=== PATIENT | male | born 1985 | race Caucasian/White ===

== ENCOUNTER 2016-12-27 15:14 | Emergency (ER) | payer MEDICARE ==
[~2016-12-27] VITALS: Ht 180.3 cm; Wt 80.0 kg
[2016-12-27 15:22] VITALS: BP 122/74; PULSE 97; RESP 18; TEMP 97.6; O2SAT 99
--- NOTE | 2016-12-27 15:53 | PD ---
HPI Chief Complaint: Skin Problem Time Seen by Provider: 15:53 Travel History International Travel<30 days: No Contact w/Intl Traveler<30days: No Traveled to known affect area: No History of Present Illness HPI 31-year-old male presents to the emergency department with complaint of multiple "insect bites" for the past week to 2 weeks to BUE and BLE, with development of severe low back pain and bilateral lower extremity edema last night. Patient arrived via EMS. Denies fever, vomiting. Denies IV drug use or cancer. Denies encopresis, incontinence, saddle anesthesias. Denies paresthesias, loss of sensation, decreased range of motion, decreased strength to bilateral lower extremities. Reports being up-to-date on his tetanus vaccination. Has no other medical complaints. No known allergies. Has not taken any medications or tried any treatments or alleviating symptoms. PFSH Past Medical History Respiratory: Yes (SLIGHT ASTHMA) Social History Tobacco Use: No Allergies-Medications (Allergen,Severity, Reaction): Coded Allergies: No Known Allergies (Unverified , 12/27/16) Reported Meds & Prescriptions Reported Meds & Active Scripts Active Bactrim DS (Sulfamethoxazole-Trimethoprim) 800-160 Mg Tab 1 Tab PO BID Tramadol (Tramadol HCl) 50 Mg Tab 50 Mg PO Q6H PRN Review of Systems Except as stated in HPI: all other systems reviewed are Neg Physical Exam Narrative GENERAL: Well-nourished, well-developed male patient, in no acute distress; afebrile, nontoxic-appearing SKIN: Warm and dry. Multiple scalp lesions noted to bilateral lower and bilateral upper extremities; HEAD: Atraumatic. Normocephalic. EYES: Pupils equal and round. No scleral icterus. No injection or drainage. ENT: Mucosa pink and moist. Airway patent. NECK: Trachea midline. CARDIOVASCULAR: Regular rate and rhythm. No murmur appreciated. Bilateral lower legs and feet with nonpitting edema. RESPIRATORY: No accessory muscle use. Breath sounds clear and equal bilaterally. No retractions or tachypnea. GASTROINTESTINAL: Abdomen soft, non-tender, nondistended. Positive bowel sounds. No hepato-splenomegaly, or palpable masses. No guarding. MUSCULOSKELETAL: Bilateral lower extremities supple and non-tense with 2+ pedal pulses and sensory intact; with full range of motion and 5/5 strength. Active dorsiflexion and extension of bilateral feet. Bilateral straight leg raise is negative for low back pain. Ambulatory in room with normal gait. Sitting up in bed at 90. No obvious deformities. No clubbing. No cyanosis. No edema. BACK: Midline point tenderness on palpation of the lumbar spine; patient has severe tenderness midline causing entire body to have goose bumps on exam. No obvious deformities. NEUROLOGICAL: Awake and alert. Oriented 3. No obvious cranial nerve deficits. Motor grossly within normal limits. Normal speech. Moves all extremities. 5/5 strength to all extremities. Sensory intact. PSYCHIATRIC: Appropriate mood and affect; insight and judgment normal. Data Data Last Documented VS Vital Signs Date Time Temp Pulse Resp B/P Pulse Ox O2 Delivery O2 Flow Rate FiO2 12/27/16 21:00 80 14 130/62 98 Room Air 12/27/16 16:33 2 12/27/16 15:22 97.6 Orders Complete Blood Count With Diff (12/27/16 16:07) Comprehensive Metabolic Panel (12/27/16 16:07) Prothrombin Time / Inr (Pt) (12/27/16 16:07) Act Partial Throm Time (Ptt) (12/27/16 16:07) Lactic Acid Sepsis Protocol (12/27/16 16:07) Urinalysis - C+S If Indicated (12/27/16 16:07) Blood Culture (12/27/16 16:07) Ecg Monitoring (12/27/16 16:07) Iv Access Insert/Monitor (12/27/16 16:07) Oximetry (12/27/16 16:07) Westergren Sedimentation Rate (12/27/16 16:07) C-Reactive Protein (Crp) (12/27/16 16:07) Wound Culture And Gram Stain (12/27/16 16:07) Mri L Spine W&W/O Contrast (12/27/16 ) Morphine Inj (Morphine Inj) (12/27/16 16:15) Clindamycin Inj (Cleocin Inj) (12/27/16 16:30) Sodium Chlor 0.9% 1000 Ml Inj (Ns 1000 M (12/27/16 16:30) Gadodiamide Pf Inj (Omniscan Pf Inj) (12/27/16 16:57) Ct Abd/Pel W/O Iv Contrast (12/27/16 ) Hydromorphone Pf Inj (Dilaudid Pf Inj) (12/27/16 22:00) Labs Laboratory Tests Test 12/27/16 12/27/16 12/27/16 16:23 19:20 20:30 White Blood Count 6.6 TH/MM3 Red Blood Count 4.84 MIL/MM3 Hemoglobin 14.2 GM/DL Hematocrit 40.9 % Mean Corpuscular Volume 84.6 FL Mean Corpuscular Hemoglobin 29.3 PG Mean Corpuscular Hemoglobin 34.7 % Concent Red Cell Distribution Width 13.2 % Platelet Count 204 TH/MM3 Mean Platelet Volume 8.1 FL Neutrophils (%) (Auto) 70.6 % Lymphocytes (%) (Auto) 20.2 % Monocytes (%) (Auto) 8.9 % Eosinophils (%) (Auto) 0.1 % Basophils (%) (Auto) 0.2 % Neutrophils # (Auto) 4.6 TH/MM3 Lymphocytes # (Auto) 1.3 TH/MM3 Monocytes # (Auto) 0.6 TH/MM3 Eosinophils # (Auto) 0.0 TH/MM3 Basophils # (Auto) 0.0 TH/MM3 CBC Comment DIFF FINAL Differential Comment Erythrocyte Sedimentation Rate 10 mm/hr Prothrombin Time 12.7 SEC Prothromb Time International 1.1 RATIO Ratio Activated Partial 32.8 SEC Thromboplast Time Lactic Acid Level 1.3 mmol/L Sodium Level 138 MEQ/L Potassium Level 3.1 MEQ/L Chloride Level 102 MEQ/L Carbon Dioxide Level 28.5 MEQ/L Anion Gap 8 MEQ/L Blood Urea Nitrogen 5 MG/DL Creatinine 0.68 MG/DL Estimat Glomerular Filtration 138 ML/MIN Rate Random Glucose 106 MG/DL Calcium Level 7.6 MG/DL Total Bilirubin 0.6 MG/DL Aspartate Amino Transf 167 U/L (AST/SGOT) Alanine Aminotransferase 221 U/L (ALT/SGPT) Alkaline Phosphatase 12 U/L C-Reactive Protein 4.90 MG/DL Total Protein 6.3 GM/DL Albumin 2.5 GM/DL Urine Color YELLOW Urine Turbidity HAZY Urine pH 6.0 Urine Specific [place] 1.017 Urine Protein TRACE mg/dL Urine Glucose (UA) NEG mg/dL Urine Ketones NEG mg/dL Urine Occult Blood MOD Urine Nitrite NEG Urine Bilirubin NEG Urine Urobilinogen 4.0 MG/DL Urine Leukocyte Esterase NEG Urine RBC /hpf Urine WBC 1 /hpf Microscopic Urinalysis Comment CATH-CULT NOT IND MDM Medical Decision Making Medical Screen Exam Complete: Yes Emergency Medical Condition: Yes Medical Record Reviewed: Yes Differential Diagnosis Multiple abscesses of multiple sites, Spinal abscess, sepsis, low back pain Narrative Course 31-year-old male with multiple abscesses multiple sites with onset of severe low back pain and bilateral lower leg and foot edema last night. Denies new or recent injury. Patient denies IV drug use or cancer. Denies encopresis, incontinence, saddle anesthesias. Patient has severe midline tenderness on palpation of the lumbar spine. I discussed the patient with Dr. Campos, my attending physician, and she recommended septic workup, MRI of the spine and to start clindamycin IV. She ordered morphine for pain. 1730: Lactic acid 1.3. CBC unremarkable. ESR 10. 1845: MRI lumbar spine concludes: Last 24 hours Impressions Lumbar Spine MRI 12/27/16 0000 Signed Impressions: Service Date/Time: Thursday, December 27, 2016 16:35 - CONCLUSION: 1. Surgical hardware at the L1-L2 level. There is postoperative change seen at the T12 and L1 spinous processes regions. 2. Mild central disc protrusion at the L3-L4 level. There is moderate stenosis at this level likely secondary to superimposed short pedicles. 3. Mild central disc protrusion at the L5 disc S1 level without significant stenosis. 4. Facet hypertrophy throughout. Magdiel Singh MD 1899: Patient reported off to Dr. Roger at this time. See her note for final patient disposition. Scripts Sulfamethoxazole-Trimethoprim (Bactrim DS)800-160 Mg Tab1 Tab PO BID #14 TAB Ref 0 Prov:Karley Roger MD 12/27/16 Tramadol 50 Mg Tab50 Mg PO Q6H PRN (PAIN) #10 TAB Ref 0 Prov:Karley Roger MD 12/27/16 Shannon Mukherjee Dec 27, 2016 15:53
[2016-12-27] MEDS ORDERED: CLINDAMYCIN INJ 900 MG in SODIUM CHLORIDE 0.9% INJ 100 ML IV ONE (16:30)
[2016-12-27] MEDS ORDERED: SODIUM CHLOR 0.9% 1000 ML INJ 1,000 ML IV ONE (16:30)
[2016-12-27 16:33] VITALS: O2SAT 97
[2016-12-27] MEDS: MORPHINE SULFATE 4 MG/ML INJ IV PUSH PRN ×2 (16:35→17:56)
[2016-12-27 16:53] LABS: AUTOMATED NEUTROPHIL # 4.6 TH/MM3 (1.8-7.7); BASOPHIL % 0.2 % (0.0-2.0); EOSINOPHIL % 0.1 % (0.0-4.0); HEMATOCRIT 40.9 % (39.0-51.0); HEMO FLAGS DIFF FINAL; LYMPH % 20.2 % (9.0-44.0); LYMPHOCYTE # 1.3 TH/MM3 (1.0-4.8); MEAN CELL VOLUME 84.6 FL (80.0-100.0); MEAN CORPUSCULAR HEMOGLOBIN 29.3 PG (27.0-34.0); MEAN CORPUSCULAR HGB CONC 34.7 % (32.0-36.0); MONO % 8.9 % (0.0-8.0); NEUT % 70.6 % (16.0-70.0); PLATELET COUNT 204 TH/MM3 (150-450); RED BLOOD COUNT 4.84 MIL/MM3 (4.50-5.90); RED CELL DISTRIBUTION WIDTH 13.2 % (11.6-17.2); WHITE BLOOD COUNT 6.6 TH/MM3 (4.0-11.0)
[2016-12-27] MEDS ORDERED: GADODIAMIDE PF 287 MG/ML 20 ML VIAL (for RAD MRI) IV ONE (16:57)
[2016-12-27 17:03] LABS: APTT (PATIENT) 32.8 SEC (24.3-30.1); INTERNATIONAL NORMALIZED RATIO 1.1 RATIO; PROTHROMBIN TIME - PATIENT 12.7 SEC (9.8-11.6)
[2016-12-27 17:50] VITALS: BP 143/78; PULSE 85; RESP 18; O2SAT 97
[2016-12-27 18:04] LABS: ALT (GPT) 221 U/L (12-78)
[2016-12-27 18:07] LABS: ALKALINE PHOSPHATASE 12 U/L (45-117); TOTAL BILIRUBIN ADULT 0.6 MG/DL (0.2-1.0)
--- NOTE | 2016-12-27 18:27 | RADRPT ---
EXAM DATE/TIME: 12/27/2016 16:35 [facility] COMPARISON: No previous studies available for comparison. INDICATIONS : Pain. CONTRAST: 16 cc Omniscan (gadodiamide) IV MEDICAL HISTORY : None. SURGICAL HISTORY : Hansen rods. ENCOUNTER: Initial ACUITY: 1 week PAIN SCORE: 5/10 LOCATION: Paraspinal TECHNIQUE: Multiplanar multisequence MRI of the lumbar spine was performed with and without contrast. FINDINGS: The most caudal appearing lumbar vertebra is numbered as L5. VERTEBRAE: Transpedicular screws are seen through the L1 and L2 levels. There is susceptibility artifact associa zoya with the hardware. There is low signal seen around the T12 and L1 spinous processes which is like ly postsurgical. The lumbar vertebral bodies appear normal in height and normally aligned. CONUS: Normal level and configuration. POST CONTRAST: No abnormal areas of contrast enhancement are seen. T12-L1: The thecal sac has a normal diameter. No evidence of disc bulge or protrusion. The neural foramina are patent bilaterally. L1-L2: The thecal sac has a normal diameter. No evidence of disc bulge or protrusion. The neural foramina are patent bilaterally. L2-L3: The thecal sac has a normal diameter. No evidence of disc bulge or protrusion. The neural foramina are patent bilaterally. There is mild facet hypertrophy. L3-L4: The disc demonstrates decreased signal. There is a mild central disc protrusion causing a mild impres dianne on the thecal sac. Overall, there is moderate narrowing of the thecal sac which may be secondary to accompanying short pedicles. The neural foramina are patent bilaterally. There is mild facet hyp ertrophy. L4-L5: The thecal sac has a normal diameter. No evidence of disc bulge or protrusion. The neural foramina are patent bilaterally. There is moderate facet hypertrophy. L5-S1: Disc demonstrates decreased signal. There is a mild central disc protrusion best seen on the sagittal images. Significant stenosis is not seen. The thecal sac has a normal diameter. The disc protrusion does abut the S1 nerve roots while there or in the lateral recess regions. The neural foramina are p atent bilaterally. There is moderate facet hypertrophy. CONCLUSION: 1. Surgical hardware at the L1-L2 level. There is postoperative change seen at the T12 and L1 spinous processes regions. 2. Mild central disc protrusion at the L3-L4 level. There is moderate stenosis at this level likely s econdary to superimposed short pedicles. 3. Mild central disc protrusion at the L5 disc S1 level without significant stenosis. 4. Facet hypertrophy throughout. Magdiel Singh MD on December 27, 2016 at 18:16 Board Certified Radiologist. This report was verified electronically.
[2016-12-27 20:01] LABS: ANION GAP 8 MEQ/L (5-15); AST (GOT) 167 U/L (15-37); BICARBONATE 28.5 MEQ/L (21.0-32.0); BLOOD UREA NITROGEN 5 MG/DL (7-18); CHLORIDE 102 MEQ/L (98-107); GLOMERULAR FILTRATION RATE 138 ML/MIN (>89); POTASSIUM 3.1 MEQ/L (3.5-5.1); SODIUM (NA) 138 MEQ/L (136-145)
[2016-12-27 20:45] LABS: BLOOD, URINE MOD (NEG); COMMENT (UR) CATH-CULT NOT IND; CULTURE IF INDICATED CATH CULTURE NOT IND; GLUCOSE,URINE NEG (NEG); KETONE, URINE NEG (NEG); NITRITE,URINE NEG (NEG); URINE COLOR YELLOW (YELLW/STRAW)
[2016-12-27 21:00] VITALS: BP 130/62; PULSE 80; RESP 14; O2SAT 98
[2016-12-27] MEDS ORDERED: HYDROmorphone HCL PF 1 MG/ML VIAL IV PUSH ONE (22:00)
--- NOTE | 2016-12-27 22:30 | RADRPT ---
EXAM DATE/TIME: 12/27/2016 22:06 [facility] COMPARISON: No previous studies available for comparison. INDICATIONS : Back pain; rule out renal calculi. ORAL CONTRAST: No oral contrast ingested. RADIATION DOSE: 8.34 CTDIvol (mGy) MEDICAL HISTORY : None SURGICAL HISTORY : None. ENCOUNTER: Initial ACUITY: 1 week PAIN SCALE: 6/10 LOCATION: TECHNIQUE: Volumetric scanning of the abdomen and pelvis was performed. Using automated exposure control and ad justment of the mA and/or kV according to patient size, radiation dose was kept as low as reasonably achievable to obtain optimal diagnostic quality images. DICOM format image data is available electro nically for review and comparison. FINDINGS: Hepatosplenomegaly is noted. Evaluation of the solid organs of the abdomen is limited by the lack of intravenous contrast. No acute obstructive uropathy is noted. The urinary bladder is unremarkable and is filled with contrast. Uncomplicated colonic diverticulosis is noted. No acute diverticulitis is noted. Degenerative changes are noted within the lumbar spine. CONCLUSION: 1. No acute obstructive uropathy. 2. Mild hepatosplenomegaly. 3. Uncomplicated colonic diverticulosis. 3. Mild degenerative changes within the lumbar spine. Fco Vann MD on December 27, 2016 at 22:22 Board Certified Radiologist. This report was verified electronically.
[2016-12-27] MEDS ORDERED: BACT800T5 PO (22:40)
[2016-12-27] MEDS ORDERED: TRAM50TA PO (22:40)
--- NOTE | 2016-12-27 22:40 | PD ---
Data Data Last Documented VS Vital Signs Date Time Temp Pulse Resp B/P Pulse Ox O2 Delivery O2 Flow Rate FiO2 12/27/16 21:00 80 14 130/62 98 Room Air 12/27/16 16:33 2 12/27/16 15:22 97.6 Orders Complete Blood Count With Diff (12/27/16 16:07) Comprehensive Metabolic Panel (12/27/16 16:07) Prothrombin Time / Inr (Pt) (12/27/16 16:07) Act Partial Throm Time (Ptt) (12/27/16 16:07) Lactic Acid Sepsis Protocol (12/27/16 16:07) Urinalysis - C+S If Indicated (12/27/16 16:07) Blood Culture (12/27/16 16:07) Ecg Monitoring (12/27/16 16:07) Iv Access Insert/Monitor (12/27/16 16:07) Oximetry (12/27/16 16:07) Westergren Sedimentation Rate (12/27/16 16:07) C-Reactive Protein (Crp) (12/27/16 16:07) Wound Culture And Gram Stain (12/27/16 16:07) Mri L Spine W&W/O Contrast (12/27/16 ) Morphine Inj (Morphine Inj) (12/27/16 16:15) Clindamycin Inj (Cleocin Inj) (12/27/16 16:30) Sodium Chlor 0.9% 1000 Ml Inj (Ns 1000 M (12/27/16 16:30) Gadodiamide Pf Inj (Omniscan Pf Inj) (12/27/16 16:57) Ct Abd/Pel W/O Iv Contrast (12/27/16 ) Hydromorphone Pf Inj (Dilaudid Pf Inj) (12/27/16 22:00) Labs Laboratory Tests Test 12/27/16 12/27/16 12/27/16 16:23 19:20 20:30 White Blood Count 6.6 TH/MM3 Red Blood Count 4.84 MIL/MM3 Hemoglobin 14.2 GM/DL Hematocrit 40.9 % Mean Corpuscular Volume 84.6 FL Mean Corpuscular Hemoglobin 29.3 PG Mean Corpuscular Hemoglobin 34.7 % Concent Red Cell Distribution Width 13.2 % Platelet Count 204 TH/MM3 Mean Platelet Volume 8.1 FL Neutrophils (%) (Auto) 70.6 % Lymphocytes (%) (Auto) 20.2 % Monocytes (%) (Auto) 8.9 % Eosinophils (%) (Auto) 0.1 % Basophils (%) (Auto) 0.2 % Neutrophils # (Auto) 4.6 TH/MM3 Lymphocytes # (Auto) 1.3 TH/MM3 Monocytes # (Auto) 0.6 TH/MM3 Eosinophils # (Auto) 0.0 TH/MM3 Basophils # (Auto) 0.0 TH/MM3 CBC Comment DIFF FINAL Differential Comment Erythrocyte Sedimentation Rate 10 mm/hr Prothrombin Time 12.7 SEC Prothromb Time International 1.1 RATIO Ratio Activated Partial 32.8 SEC Thromboplast Time Lactic Acid Level 1.3 mmol/L Sodium Level 138 MEQ/L Potassium Level 3.1 MEQ/L Chloride Level 102 MEQ/L Carbon Dioxide Level 28.5 MEQ/L Anion Gap 8 MEQ/L Blood Urea Nitrogen 5 MG/DL Creatinine 0.68 MG/DL Estimat Glomerular Filtration 138 ML/MIN Rate Random Glucose 106 MG/DL Calcium Level 7.6 MG/DL Total Bilirubin 0.6 MG/DL Aspartate Amino Transf 167 U/L (AST/SGOT) Alanine Aminotransferase 221 U/L (ALT/SGPT) Alkaline Phosphatase 12 U/L C-Reactive Protein 4.90 MG/DL Total Protein 6.3 GM/DL Albumin 2.5 GM/DL Urine Color YELLOW Urine Turbidity HAZY Urine pH 6.0 Urine Specific [place] 1.017 Urine Protein TRACE mg/dL Urine Glucose (UA) NEG mg/dL Urine Ketones NEG mg/dL Urine Occult Blood MOD Urine Nitrite NEG Urine Bilirubin NEG Urine Urobilinogen 4.0 MG/DL Urine Leukocyte Esterase NEG Urine RBC /hpf Urine WBC 1 /hpf Microscopic Urinalysis Comment CATH-CULT NOT IND MDM Supervised Visit with REMEDIOS: Yes Narrative Course The history, exam, and medical decision-making in the associated midlevel provider note were completed with my assistance. I reviewed and agree with the findings presented. I attest that I had a [id number] encounter with the patient on the same day, and personally performed and documented my assessment and findings in the medical record. *My assessment and Findings: This is a 31-year-old male who presents to the emergency department with low back pain and leg swelling. He is pretty uncomfortable when I walked in the room, writhing in bed. Clinically to me appears to have a kidney stone. Urinalysis demonstrates hematuria. He had an MRI earlier with a prior provider which was reassuring of the lumbar spine. I ordered a CT abdomen and pelvis which was unremarkable. I suspect he has an occult kidney stone. He will be treated symptomatically and he'll be placed on antibiotics for possible cystitis. I did discuss with him the importance of follow up with urology. Pt. was discharged home. Diagnosis Primary Impression: Hematuria Additional Impression: Cellulitis Qualified Code: L03.116 - Cellulitis of left lower extremity Patient Instructions: General Instructions Additional Instruction: If you develop fever, increasing redness, warmth, or spreading of your infection , or severe pain return to the emergency department immediately as you may require antibiotics through your IV. Complete your course of antibiotics as prescribed. It is very important that you follow up with a urologist regarding the blood in your urine. Med/Other Pt SpecificInfo: Prescription(s) given Scripts Sulfamethoxazole-Trimethoprim (Bactrim DS)800-160 Mg Tab1 Tab PO BID #14 TAB Ref 0 Prov:Karley Roger MD 12/27/16 Tramadol 50 Mg Tab50 Mg PO Q6H PRN (PAIN) #10 TAB Ref 0 Prov:Karley Roger MD 12/27/16 Disposition: 01 DISCHARGE HOME Condition: Stable Karley Roger MD Dec 27, 2016 22:40
== END 2016-12-27 22:57 | disposition home or self-care (01) ==
LOC: NEPD 15:14
DX: R31.9 Hematuria, unspecified (principal); L03.116 Cellulitis of left lower limb; M54.5 Low back pain; J45.909 Unspecified asthma, uncomplicated; Z79.899 Other long term (current) drug therapy
CPT/HCPCS: 72158; 74176; 80053; 81001; 83605; 85025; 85610; 85652; 85730; 86140; 86403; 87040; 87070; 87186; 96365; 96375; 96376; 99285; A9579; J1170; J2270; J7030; 87205

== ENCOUNTER 2017-01-05 16:25 | Inpatient (IN) | payer MEDICARE ==
[~2017-01-05] VITALS: Ht 180.3 cm; Wt 87.2 kg
[~2017-01-05 16:25] MED LIST: BACT800T5 PO; TRAM50TA PO
[2017-01-05 16:27] VITALS: PULSE 123; RESP 16; TEMP 98.7; O2SAT 97
[2017-01-05 16:56] VITALS: BP 103/62
[2017-01-05] MEDS ORDERED: SODIUM CHLOR 0.9% 1000 ML INJ 1,000 ML IV ONE ×2 (17:00)
[2017-01-05] MEDS ORDERED: VANCOMYCIN INJ 1,000 MG in SODIUM CHLOR 0.9% 250 ML INJ 250 ML IV ONE (17:00)
--- NOTE | 2017-01-05 17:06 | PD ---
HPI Chief Complaint: Bite or Sting Time Seen by Provider: 16:33 Travel History International Travel<30 days: No Contact w/Intl Traveler<30days: No Traveled to known affect area: No History of Present Illness HPI This patient complains of infection in his right hand. Since it started yesterday. He was seen in the ER 10 days ago and had culture of his left leg scabbed lesion growing MRSA and beta strep. Patient has innumerable scabbed lesions over his arms and legs. He denies ever using IV drugs. Denies fever. Pain is worse with movement. Severity is moderate to severe. No alleviating factors. 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 Reported Meds & Prescriptions Reported Meds & Active Scripts Active Bactrim DS (Sulfamethoxazole-Trimethoprim) 800-160 Mg Tab 1 Tab PO BID Tramadol (Tramadol HCl) 50 Mg Tab 50 Mg PO Q6H PRN Review of Systems General / Constitutional: No: Fever Eyes: No: Visual changes HENT: No: Headaches Cardiovascular: Positive: Tachycardia, No: Chest Pain or Discomfort Respiratory: No: Shortness of Breath Gastrointestinal: No: Abdominal Pain Genitourinary: No: Dysuria Musculoskeletal: Positive: Limited ROM, Pain Skin: No Rash Neurologic: No: Weakness Psychiatric: No: Depression Endocrine: No: Polydipsia Hematologic/Lymphatic: No: Easy Bruising Physical Exam Narrative GENERAL: Well-nourished, well-developed patient with right hand pain and swelling. SKIN: Focused skin assessment reveals lots of scabbed lesions, circular in shape , on both arms and both legs. Skin is Warm and dry. No active drainage HEAD: Atraumatic. Normocephalic. EYES: Pupils equal and round. No scleral icterus. No injection or drainage. ENT: No nasal bleeding or discharge. Mucous membranes pink and moist. NECK: Trachea midline. No JVD. CARDIOVASCULAR: Regular rate and rhythm. No murmur appreciated. Tachycardic 120 RESPIRATORY: No accessory muscle use. Clear to auscultation. Breath sounds equal bilaterally. GASTROINTESTINAL: Abdomen soft, non-tender, nondistended. Hepatic and splenic margins not palpable. MUSCULOSKELETAL: Has erythema and warmth and tenderness and swelling in the lateral aspect of the right hand. No clubbing. No cyanosis. No edema. Has some yellow honey crusting but no active drainage or fluctuance. There is minimal discomfort with passive and active flexion extension of the digits NEUROLOGICAL: Awake and alert. No obvious cranial nerve deficits. Motor grossly within normal limits. Normal speech. PSYCHIATRIC: Appropriate mood and affect; insight and judgment normal. Data Data Last Documented VS Vital Signs Date Time Temp Pulse Resp B/P Pulse Ox O2 Delivery O2 Flow Rate FiO2 01/05/17 16:56 103/62 01/05/17 16:27 98.7 123 16 97 Orders Iv Access Insert/Monitor (01/05/17 16:56) Complete Blood Count With Diff (01/05/17 16:56) Sodium Chlor 0.9% 1000 Ml Inj (Ns 1000 M (01/05/17 17:00) Vancomycin Inj (Vancomycin Inj) (01/05/17 17:00) Comprehensive Metabolic Panel (01/05/17 16:56) Lactic Acid (01/05/17 16:56) Prothrombin Time / Inr (Pt) (01/05/17 16:56) Act Partial Throm Time (Ptt) (01/05/17 16:56) Sodium Chlor 0.9% 1000 Ml Inj (Ns 1000 M (01/05/17 17:00) Hand, Limited (2vws) (01/05/17 ) Acetamin-Hydrocod 325-5 Mg ([place] 5-325 (01/05/17 18:00) Drug Screen, Random Urine (01/05/17 17:51) Admit Order (Ed Use Only) (01/05/17 17:51) Labs Laboratory Tests Test 01/05/17 17:14 White Blood Count 12.6 TH/MM3 Red Blood Count 4.54 MIL/MM3 Hemoglobin 13.3 GM/DL Hematocrit 38.6 % Mean Corpuscular Volume 85.0 FL Mean Corpuscular Hemoglobin 29.2 PG Mean Corpuscular Hemoglobin 34.4 % Concent Red Cell Distribution Width 12.7 % Platelet Count 219 TH/MM3 Mean Platelet Volume 7.6 FL Neutrophils (%) (Auto) 68.7 % Lymphocytes (%) (Auto) 19.1 % Monocytes (%) (Auto) 10.4 % Eosinophils (%) (Auto) 0.3 % Basophils (%) (Auto) 1.5 % Neutrophils # (Auto) 8.7 TH/MM3 Lymphocytes # (Auto) 2.4 TH/MM3 Monocytes # (Auto) 1.3 TH/MM3 Eosinophils # (Auto) 0.0 TH/MM3 Basophils # (Auto) 0.2 TH/MM3 CBC Comment DIFF FINAL Differential Comment Sodium Level 135 MEQ/L Potassium Level 3.9 MEQ/L Chloride Level 99 MEQ/L Carbon Dioxide Level 27.1 MEQ/L Anion Gap 9 MEQ/L Blood Urea Nitrogen 9 MG/DL Creatinine 0.84 MG/DL Estimat Glomerular Filtration 108 ML/MIN Rate Random Glucose 84 MG/DL Calcium Level 8.7 MG/DL Total Bilirubin 1.1 MG/DL Aspartate Amino Transf 264 U/L (AST/SGOT) Alanine Aminotransferase 299 U/L (ALT/SGPT) Alkaline Phosphatase 103 U/L Total Protein 7.2 GM/DL Albumin 3.0 GM/DL MDM Medical Decision Making Medical Screen Exam Complete: Yes Emergency Medical Condition: Yes Medical Record Reviewed: Yes Differential Diagnosis Sepsis, cellulitis, abscess Narrative Course I have reviewed the patient's electronic medical record. Reviewed his visit from 10 days ago. He has culture proven MRSA hIs MRSA is sensitive to vancomycin I gave him 1 g IV vancomycin I gave him 2 L of normal saline IV CBC shows minor leukocytosis of 12.6 thousand Metabolic profile reasonably normal LFTs shows increased LFTs which was seen also 10 days ago Coagulation studies are pending I reviewed his right hand x-rays which show no bony involvement or gas in the tissues. There is some soft tissue swelling I ordered a urine tox screen which is pending I gave him 2 pain pills This patient requires admission for IV antibiotics. He has failure of outpatient treatment and significant right hand infection. He will need IV vancomycin. I don't think at this point he needs emergent hand surgery. However if there is no improvement he will need an surgeon evaluation. I reviewed with Dr. Wolf who will admit Diagnosis Primary Impression: Infection of right hand Additional Impression: Failure of outpatient treatment Jerardo Miranda MD Jan 05, 2017 17:06
[2017-01-05 17:22] LABS: AUTOMATED NEUTROPHIL # 8.7 TH/MM3 (1.8-7.7); BASOPHIL # 0.2 TH/MM3 (0-0.2); BASOPHIL % 1.5 % (0.0-2.0); EOSINOPHIL % 0.3 % (0.0-4.0); HEMATOCRIT 38.6 % (39.0-51.0); HEMO FLAGS DIFF FINAL; LYMPH % 19.1 % (9.0-44.0); LYMPHOCYTE # 2.4 TH/MM3 (1.0-4.8); MEAN CORPUSCULAR HEMOGLOBIN 29.2 PG (27.0-34.0); MEAN CORPUSCULAR HGB CONC 34.4 % (32.0-36.0); MONO % 10.4 % (0.0-8.0); NEUT % 68.7 % (16.0-70.0); PLATELET COUNT 219 TH/MM3 (150-450); RED BLOOD COUNT 4.54 MIL/MM3 (4.50-5.90); RED CELL DISTRIBUTION WIDTH 12.7 % (11.6-17.2); WHITE BLOOD COUNT 12.6 TH/MM3 (4.0-11.0)
[2017-01-05 17:31] LABS: CHLORIDE 99 MEQ/L (98-107); POTASSIUM 3.9 MEQ/L (3.5-5.1); SODIUM (NA) 135 MEQ/L (136-145)
[2017-01-05 17:35] LABS: ANION GAP 9 MEQ/L (5-15); BICARBONATE 27.1 MEQ/L (21.0-32.0); BLOOD UREA NITROGEN 9 MG/DL (7-18)
[2017-01-05 17:38] LABS: ALT (GPT) 299 U/L (12-78); AST (GOT) 264 U/L (15-37); GLOMERULAR FILTRATION RATE 108 ML/MIN (>89)
[2017-01-05 17:40] LABS: TOTAL BILIRUBIN ADULT 1.1 MG/DL (0.2-1.0)
[2017-01-05 17:41] LABS: ALKALINE PHOSPHATASE 103 U/L (45-117)
[2017-01-05] MEDS: SODIUM CHLOR 0.9% 1000 ML INJ 1,000 ML IV SCH (17:56)
--- NOTE | 2017-01-05 17:56 | RADRPT ---
EXAM DATE/TIME: 01/05/2017 17:46 [facility] COMPARISON: No previous studies available for comparison. INDICATIONS : Inflammation to right hand. MEDICAL HISTORY : None. SURGICAL HISTORY : None. ENCOUNTER: Initial ACUITY: 2 days PAIN SCORE: 10/10 LOCATION: Right hand. FINDINGS: Two view examination of the right hand demonstrates no dislocation, or fracture. Mild nonspecific s oft tissue swelling. The joint spaces are maintained. Bony mineralization is normal. No radiopaque f oreign bodies. CONCLUSION: Nonspecific soft tissue swelling. Otherwise unremarkable exam. Jason Vera MD on January 05, 2017 at 17:53 Board Certified Radiologist. This report was verified electronically.
[2017-01-05] MEDS ORDERED: ACETAMINOPHEN/HYDROcodone 325 MG/5 MG TAB PO ONE (18:00)
[2017-01-05] MEDS ORDERED: traMADol HCL 50 MG TAB PO PRN (18:00)
[2017-01-05] MEDS ORDERED: SODIUM CHLORIDE 0.9% FLUSH 10 ML FLUSH IV FLUSH PRN (18:00)
[2017-01-05] MEDS ORDERED: ACETAMINOPHEN 325 MG TAB PO PRN (18:00)
[2017-01-05 18:04] VITALS: BP 119/61; PULSE 112; RESP 18; O2SAT 98
[2017-01-05 18:18] LABS: APTT (PATIENT) 36.6 SEC (24.3-30.1); INTERNATIONAL NORMALIZED RATIO 1.2 RATIO; PROTHROMBIN TIME - PATIENT 13.7 SEC (9.8-11.6)
[2017-01-05] MEDS ORDERED: Vancomycin Consult Pharmacy 1 EA OTHER SCH (19:00)
[2017-01-05] MEDS ORDERED: VANCOMYCIN INJ 1,000 MG in SODIUM CHLOR 0.9% 250 ML INJ 250 ML IV SCH (19:00)
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
[2017-01-05] MEDS ORDERED: ACETAMINOPHEN 1000 MG/100 ML VIAL IV ONE (19:30)
[2017-01-05 19:50] LABS: AMPHETAMINE, URINE POS (NEG); BARBITURATES, URINE NEG (NEG); COCAINE, URINE NEG (NEG)
[2017-01-05 20:00] VITALS: BP 131/75; PULSE 107; RESP 20; TEMP 98.2; O2SAT 96
--- NOTE | 2017-01-05 20:01 | RADRPT ---
EXAM DATE/TIME: 01/05/2017 19:23 [facility] COMPARISON: No previous studies available for comparison. INDICATIONS : Chest pain. MEDICAL HISTORY : Cellulitis. MRSA. SURGICAL HISTORY : None. ENCOUNTER: Initial ACUITY: 1 day PAIN SCORE: 3/10 LOCATION: Bilateral chest FINDINGS: PA and lateral views of the chest demonstrate the lungs to be symmetrically aerated without evidence of mass, infiltrate or effusion. The cardiomediastinal contours are unremarkable. Osseous structure s are intact. CONCLUSION: No focal infiltrates seen. Bairon Moseley MD on January 05, 2017 at 19:58 Board Certified Radiologist. This report was verified electronically.
[2017-01-05] MEDS: ACETAMINOPHEN/HYDROcodone 325 MG/7.5 MG TAB PO PRN (20:25)
[2017-01-05] MEDS: NICOTINE 21 MG/24 HR PATCH T-DERMAL SCH (20:26)
[2017-01-05] MEDS: cefTRIAXone INJ 1,000 MG in SODIUM CHLORIDE 0.9% INJ 100 ML IV SCH (20:27)
[2017-01-05] MEDS: SODIUM CHLORIDE 0.9% FLUSH 10 ML FLUSH IV FLUSH SCH (20:27)
--- NOTE | 2017-01-05 21:41 | RADRPT ---
EXAM DATE/TIME: 01/05/2017 20:47 [facility] COMPARISON: No previous studies available for comparison. INDICATIONS : Increased lab values. MEDICAL HISTORY : Kidney stones. MRSA. SURGICAL HISTORY : Hansen rods. ENCOUNTER: Initial ACUITY: 1 day PAIN SCORE: 10/10 LOCATION: Bilateral upper quadrant MEASUREMENTS: LIVER: 20.6 cm length COMMON DUCT: 2 mm RIGHT KIDNEY: 11.8 x 6.4 x 5.6 cm SPLEEN: 14.2 cm length FINDINGS: LIVER: Normal echotexture the right lobe without focal lesion or ductal dilatation. The left lobe is not we ll-seen. Hepatopedal flow seen in the portal vein. COMMON DUCT: No intraluminal mass or stone visualized. GALLBLADDER: Contains no stones, demonstrates no wall thickening or pericholecystic fluid. PANCREAS: Not visualized. RIGHT KIDNEY: No hydronephrosis, stone or mass. SPLEEN: No focal lesion. CONCLUSION: 1. Hepatomegaly without focal lesion. 2. No gallstones seen. Normal dimension common hepatic duct. Bairon Moseley MD on January 05, 2017 at 21:37 Board Certified Radiologist. This report was verified electronically.
[2017-01-06] VITALS: BP 149/82; PULSE 110; RESP 18; TEMP 97.9; O2SAT 99
[2017-01-06] MEDS: VANCOMYCIN INJ 1,250 MG in SODIUM CHLOR 0.9% 250 ML INJ 250 ML IV SCH ×3 (00:43→16:00)
[2017-01-06] MEDS ORDERED: ACETAMINOPHEN/HYDROcodone 325 MG/7.5 MG TAB PO ONE (01:15)
[2017-01-06] MEDS: ACETAMINOPHEN/HYDROcodone 325 MG/7.5 MG TAB PO PRN ×2 (02:15→07:59)
[2017-01-06 04:00] VITALS: BP 147/78; PULSE 98; RESP 18; TEMP 96.5; O2SAT 100
[2017-01-06] MEDS: SODIUM CHLOR 0.9% 1000 ML INJ 1,000 ML IV SCH ×2 (06:12→22:31)
[2017-01-06 07:41] LABS: POTASSIUM 3.4 MEQ/L (3.5-5.1)
[2017-01-06 07:47] LABS: BASOPHIL % 0.4 % (0.0-2.0); EOSINOPHIL % 0.6 % (0.0-4.0); HEMO FLAGS DIFF FINAL; LYMPH % 19.8 % (9.0-44.0); LYMPHOCYTE # 1.5 TH/MM3 (1.0-4.8); MEAN CELL VOLUME 86.2 FL (80.0-100.0); MEAN CORPUSCULAR HGB CONC 33.7 % (32.0-36.0); MONO % 12.8 % (0.0-8.0); NEUT % 66.4 % (16.0-70.0); PLATELET COUNT 181 TH/MM3 (150-450); RED BLOOD COUNT 4.63 MIL/MM3 (4.50-5.90); RED CELL DISTRIBUTION WIDTH 12.7 % (11.6-17.2); WHITE BLOOD COUNT 7.4 TH/MM3 (4.0-11.0)
[2017-01-06] MEDS: cefTRIAXone INJ 1,000 MG in SODIUM CHLORIDE 0.9% INJ 100 ML IV SCH (07:57)
[2017-01-06 08:00] VITALS: BP 147/88; PULSE 90; RESP 19; TEMP 98.3; O2SAT 100
[2017-01-06] MEDS: NICOTINE 21 MG/24 HR PATCH T-DERMAL SCH (08:05)
[2017-01-06] MEDS ORDERED: POTASSIUM CHLORIDE 10 MEQ CONTROLLED RELEASE TAB PO ONE (08:45)
[2017-01-06] MEDS: REMOVE OLD PATCH T-DERMAL SCH (09:00)
[2017-01-06] MEDS: SODIUM CHLORIDE 0.9% FLUSH 10 ML FLUSH IV FLUSH SCH ×3 (09:00→22:32)
[2017-01-06 12:00] VITALS: BP 132/90; PULSE 85; RESP 18; TEMP 98; O2SAT 99
--- NOTE | 2017-01-06 17:35 | HHI.PR ---
Subjective Remarks Patient seen in follow up for right hand infection now admits IVDU, request hand surgeon iwona. no ever, leukocytes improved Objective Vitals Vital Signs Date Time Temp Pulse Resp B/P Pulse Ox O2 Delivery O2 Flow Rate FiO2 01/06/17 12:00 98.0 85 18 132/90 99 01/06/17 08:00 98.3 90 19 147/88 100 01/06/17 04:00 96.5 98 18 147/78 100 01/06/17 00:00 97.9 110 18 149/82 99 01/05/17 20:00 98.2 107 20 131/75 96 01/05/17 18:04 112 18 119/61 98 Room Air I/O 01/05/17 01/05/17 01/05/17 01/06/17 01/06/17 01/06/17 07:00 15:00 23:00 07:00 15:00 23:00 Intake Total 1650 ml 800 ml 800 ml Output Total 1250 ml 1400 ml Balance 400 ml -600 ml 800 ml Intake IV Total 1650 ml 800 ml 800 ml Output Urine Total 1250 ml 1400 ml # Bowel Movements 0 0 Result Diagram: 01/06/17 0630 01/06/17 0630 Objective Remarks GENERAL: This is a well-nourished, well-developed patient, in no apparent distress. CARDIOVASCULAR: Regular rate and rhythm without murmurs, gallops, or rubs. RESPIRATORY: Clear to auscultation. Breath sounds equal bilaterally. No wheezes , rales, or rhonchi. GASTROINTESTINAL: Abdomen soft, non-tender, nondistended. Normal active bowel sounds MUSCULOSKELETAL: right hand swelling improved; grey tender and red. improved ROM. other 3Extremities without clubbing, cyanosis, or edema. NEURO: Alert & Oriented x4 to person, place, time, situation. Moves all ext x4 A/P Problem List: (1) Infection of right hand ICD Code: L08.9 Status: Acute Plan: Sepsis and IVDU Continue with vancomycin and IV clinda/ po bactrim, blood cultures pending Follow-up chest x-ray and urine cultures are negative 2-D echo pending Avoid IV narcotics and follow clinically Continue hydration ]hand surgeon consulted Shae Wolf MD Jan 06, 2017 17:35
[2017-01-06 20:00] VITALS: BP 118/79; PULSE 87; RESP 22; TEMP 99.8; O2SAT 100
[2017-01-06] MEDS: CLINDAMYCIN INJ 600 MG in SODIUM CHLORIDE 0.9% INJ 100 ML IV SCH ×2 (20:00→22:31)
[2017-01-06] MEDS: SULFAMETHOXAZOLE-TRIMETHOPRIM DS 800-160 MG TAB PO SCH (20:53)
[2017-01-06] MEDS ORDERED: LORazepam 0.5 MG TAB PO ONE (21:30)
[2017-01-06] MEDS ORDERED: VANCOMYCIN TROUGH ONE (23:45)
[2017-01-07] VITALS: BP 114/83; PULSE 104; RESP 20; TEMP 98.9; O2SAT 97
[2017-01-07] MEDS: VANCOMYCIN INJ 1,250 MG in SODIUM CHLOR 0.9% 250 ML INJ 250 ML IV SCH ×3 (00:09→18:25)
[2017-01-07] MEDS: CLINDAMYCIN INJ 600 MG in SODIUM CHLORIDE 0.9% INJ 100 ML IV SCH ×3 (03:50→21:06)
[2017-01-07 08:18] LABS: CHLORIDE 108 MEQ/L (98-107); SODIUM (NA) 144 MEQ/L (136-145)
[2017-01-07 08:28] LABS: ALT (GPT) 241 U/L (12-78); ANION GAP 6 MEQ/L (5-15); AST (GOT) 214 U/L (15-37); BICARBONATE 29.8 MEQ/L (21.0-32.0); BLOOD UREA NITROGEN 5 MG/DL (7-18); GLOMERULAR FILTRATION RATE 136 ML/MIN (>89)
[2017-01-07 08:30] LABS: ALKALINE PHOSPHATASE 93 U/L (45-117); TOTAL BILIRUBIN ADULT 0.4 MG/DL (0.2-1.0)
[2017-01-07 08:43] VITALS: BP 147/83; PULSE 67; RESP 15; TEMP 97; O2SAT 100
[2017-01-07] MEDS: NICOTINE 21 MG/24 HR PATCH T-DERMAL SCH (08:48)
[2017-01-07] MEDS: SULFAMETHOXAZOLE-TRIMETHOPRIM DS 800-160 MG TAB PO SCH ×2 (08:48→21:06)
[2017-01-07] MEDS: REMOVE OLD PATCH T-DERMAL SCH (08:49)
[2017-01-07] MEDS: SODIUM CHLORIDE 0.9% FLUSH 10 ML FLUSH IV FLUSH SCH ×2 (08:50→21:06)
[2017-01-07] MEDS: SODIUM CHLOR 0.9% 1000 ML INJ 1,000 ML IV SCH ×2 (08:51→18:25)
--- NOTE | 2017-01-07 11:34 | ECHRPT ---
Indication: Severe sepsis without septic shock, Acute and subacute endocarditis, unspecified CONCLUSIONS Very technically difficult study. Normal left ventricular size and wall thickness. The left ventricular systolic function is normal wi th an estimated ejection fraction in the range of 60-65%. Left ventricular diastolic function parameters a re normal. BP: 114 / 83 HR: 104 Rhythm: Sinus MEASUREMENTS (Male / Female) Normal Values Technical Quality:Very technically difficult study 2D ECHO LVOT Diameter 1.7 cm Aortic Root Diameter 2.7 cm DOPPLER AV Peak Velocity 143.0 cm/s AV Peak Gradient 8.2 mmHg AV Mean Gradient 4.0 mmHg AV Velocity Time Integral 24.2 cm LVOT Peak Velocity 95.5 cm/s LVOT Peak Gradient 3.6 mmHg LVOT Velocity Time Integral 18.4 cm LVOT Cardiac Index 2060.7 cm/minm AV Area Cont Eq vti 1.7 cm AV Area Cont Eq pk 1.5 cm Mitral E Point Velocity 95.3 cm/s Mitral A Point Velocity 62.2 cm/s Mitral E to A Ratio 1.5 LV E' Lateral Velocity 16.8 cm/s Mitral E to LV E' Lateral Ratio 5.7 LV E' Septal Velocity 18.1 cm/s Mitral E to LV E' Septal Ratio 5.3 TR Peak Velocity 221.0 cm/s TR Peak Gradient 19.5 mmHg FINDINGS LEFT VENTRICLE Normal left ventricular size and wall thickness. The left ventricular systolic function is normal wi th an estimated ejection fraction in the range of 60-65%. Left ventricular diastolic function parameters a re normal. RIGHT VENTRICLE Normal right ventricular size and systolic function. LEFT ATRIUM The left atrial size is normal. RIGHT ATRIUM The right atrial size is normal. ATRIAL SEPTUM Normal atrial septal thickness without atrial level shunting by limited color doppler interrogation. AORTA The aortic root and proximal ascending aorta are normal in size on limited imaging. MITRAL VALVE Structurally normal mitral valve. No mitral valve stenosis or regurgitation. AORTIC VALVE Trileaflet aortic valve. No aortic valve stenosis or regurgitation. TRICUSPID VALVE Structurally normal tricuspid valve. No tricuspid valve stenosis or regurgitation. PULMONARY VALVE The pulmonary valve is not well visualized. VESSELS The inferior vena cava is normal in size. PERICARDIUM No pericardial effusion. Eduardo Licona MD, FACC (Electronically Signed) Final Date:07 January 2017 11:31
--- NOTE | 2017-01-07 11:59 | MB ---
cc: CRISTINA PARKER M.D. DATE OF CONSULTATION 01/07/2017 REQUESTING PHYSICIAN The patient is being seen at the request of Dr. Shae Wolf. REASON FOR CONSULTATION Hand infection. HISTORY OF PRESENT ILLNESS The patient is a 31-year-old IV drug abuser who was admitted to the hospital on 01/05/2017. At that time the patient had evidence of possible sepsis and was admitted for intravenous antibiotics. It was noted that he had several areas of infection consistent with his history of MRSA. The patient was noted to have some swelling and pain in the dorsal aspect of his right hand. Consultation is requested to evaluate and treat his right hand. REVIEW OF SYSTEMS The patient was complaining of diaphoretic episodes, fever, weight loss and chills on admission. In addition, he noted he had a rash. Otherwise 12 systems were negative in detail. PAST MEDICAL HISTORY History is significant for pain from back injuries. PAST SURGICAL HISTORY He has had back surgery. MEDICATIONS RECENT ANTIBIOTICS. ALLERGIES Multiple multidrug resistant organisms. FAMILY HISTORY Noncontributory. SOCIAL HISTORY The patient says was in a pain management program. He smokes a pack of cigarettes per day. PHYSICAL EXAMINATION GENERAL: On examination the patient is lying in bed. VITAL SIGNS: His temperature is 97.0, pulse 67, respirations 15, blood pressure 147/83. His pulse oximetry is 100 on room air. HEENT: His extraocular muscles are intact. His pupils are equal, round and reactive to light. His mouth is clear. NECK: His neck is supple without masses. LUNGS: His lungs are clear. HEART: Regular rate and rhythm. EXTREMITIES: Examination of his right upper extremity reveals no significant swelling or fluctuance. There is some superficial excoriation with clear drainage. There is an area adjacent to this which is also tender but does not appear to be swollen or fluctuant. LABORATORY DATA His white count was 12.6 on admission, was 7.4 yesterday morning with no shift seen. There are no wound cultures done and his blood cultures have been negative. HAND X-RAYS Negative. IMPRESSION The patient appears to have areas of cellulitis. PLAN 1. The patient will be sent for an ultrasound to see if there are any areas to be drained on his hand. 2. He will continue on local wound care and intravenous antibiotics. MD JESUS Julio/YONI /11:39 AM /11:56 AM
[2017-01-07 12:27] VITALS: BP 127/59; PULSE 82; RESP 15; TEMP 97.6; O2SAT 100
--- NOTE | 2017-01-07 15:30 | HHI.PR ---
Subjective Remarks Patient seen and evaluated in follow-up for right hand infection. Overall improved in pain and swelling. No fever No further leukocytosis Hand surgery evaluation appreciated Awaiting ultrasound results Objective Vitals Vital Signs Date Time Temp Pulse Resp B/P Pulse Ox O2 Delivery O2 Flow Rate FiO2 01/07/17 12:27 97.6 82 15 127/59 100 01/07/17 08:43 97.0 67 15 147/83 100 01/07/17 00:00 98.9 104 20 114/83 97 01/06/17 20:00 99.8 87 22 118/79 100 I/O 01/06/17 01/06/17 01/06/17 01/07/17 01/07/17 01/07/17 07:00 15:00 23:00 07:00 15:00 23:00 Intake Total 800 ml 800 ml Output Total 1400 ml Balance -600 ml 800 ml Intake IV Total 800 ml 800 ml Output Urine Total 1400 ml # Bowel Movements 0 Result Diagram: 01/06/17 0630 01/07/17 0755 Objective Remarks GENERAL: This is a well-nourished, well-developed patient, in no apparent distress. CARDIOVASCULAR: Regular rate and rhythm without murmurs, gallops, or rubs. RESPIRATORY: Clear to auscultation. Breath sounds equal bilaterally. No wheezes , rales, or rhonchi. GASTROINTESTINAL: Abdomen soft, non-tender, nondistended. Normal active bowel sounds MUSCULOSKELETAL: right hand swelling improved; backing in machine tender and red. improved ROM. other 3 Extremities without clubbing, cyanosis, or edema. NEURO: Alert & Oriented x4 to person, place, time, situation. Moves all ext x4 A/P Problem List: (1) Infection of right hand ICD Code: L08.9 Status: Acute Plan: Sepsis and IVDU Continue with Empiric vancomycin and IV clinda/po bactrim, blood cultures negative to date, Follow-up chest x-ray and urine cultures are negative 2-D echo wnl Avoid IV narcotics and follow clinically Continue hydration hand surgeon iwona appreciated us shows no abscess (2) Hepatitis C ICD Code: B19.20 Status: Acute Plan: LFTs elevated, work up in progress New per patient Assessment and Plan likely dc on po bactrim/clinda 1-2 days Shae Wolf MD Jan 07, 2017 15:30
--- NOTE | 2017-01-07 16:17 | RADRPT ---
EXAM DATE/TIME: 01/07/2017 11:53 [facility] COMPARISON: No previous studies available for comparison. INDICATIONS : Right hand swelling. IV drug use. MEDICAL HISTORY : Methicillin-resistant Staphylococcus aureus. Renal calculi. IV drug use. SURGICAL HISTORY : Back surgery. ENCOUNTER: Initial ACUITY: 3 days PAIN SCORE: 8/10 LOCATION: Right hand. AREA EVALUATED: Right dorsal hand. FINDINGS: There is heterogeneous echogenicity characteristic of cellulitis without evidence of abscess. Subcuta neous edema is present. CONCLUSION: 1. Cellulitis without evidence of abscess. Ky Bach MD on January 07, 2017 at 16:14 Board Certified Radiologist. This report was verified electronically.
[2017-01-07 17:21] VITALS: BP 130/81; PULSE 106; RESP 14; TEMP 96.3; O2SAT 99
[2017-01-07 20:00] VITALS: BP 142/70; PULSE 80; RESP 20; TEMP 97; O2SAT 100
[2017-01-08] VITALS: BP 141/84; PULSE 69; RESP 20; TEMP 97.5; O2SAT 97
[2017-01-08] MEDS: VANCOMYCIN INJ 1,250 MG in SODIUM CHLOR 0.9% 250 ML INJ 250 ML IV SCH ×3 (00:11→17:20)
[2017-01-08] MEDS: SODIUM CHLOR 0.9% 1000 ML INJ 1,000 ML IV SCH ×2 (00:11→17:20)
[2017-01-08 04:00] VITALS: BP 130/65; PULSE 71; RESP 20; TEMP 97.1; O2SAT 98
[2017-01-08] MEDS: CLINDAMYCIN INJ 600 MG in SODIUM CHLORIDE 0.9% INJ 100 ML IV SCH ×3 (04:00→21:45)
[2017-01-08] MEDS ORDERED: PHARMACY ORDERED LAB ONE (07:45)
[2017-01-08] MEDS: SULFAMETHOXAZOLE-TRIMETHOPRIM DS 800-160 MG TAB PO SCH ×2 (08:40→21:45)
[2017-01-08] MEDS: SODIUM CHLORIDE 0.9% FLUSH 10 ML FLUSH IV FLUSH SCH ×2 (08:41→21:00)
[2017-01-08] MEDS: REMOVE OLD PATCH T-DERMAL SCH (08:42)
[2017-01-08] MEDS: NICOTINE 21 MG/24 HR PATCH T-DERMAL SCH (08:42)
[2017-01-08 08:53] VITALS: BP 129/73; PULSE 70; RESP 14; TEMP 96.5; O2SAT 98
--- NOTE | 2017-01-08 08:56 | HHI.PR ---
Subjective Remarks In bed, appears sleepy. Says he still has some throbbing pain in his hand, erythema and edema improving. She says she has better range of motion of his fingers and his right hand. No fever or chills overnight. Denies any nausea, vomiting, diarrhea or constipation. No chest pain shortness of breath. No rash on his body. Objective Vitals Vital Signs Date Time Temp Pulse Resp B/P Pulse Ox O2 Delivery O2 Flow Rate FiO2 01/08/17 08:53 96.5 70 14 129/73 98 01/08/17 04:00 97.1 71 20 130/65 98 01/08/17 00:00 97.5 69 20 141/84 97 01/07/17 20:00 97.0 80 20 142/70 100 01/07/17 17:21 96.3 106 14 130/81 99 01/07/17 12:27 97.6 82 15 127/59 100 I/O 01/07/17 01/07/17 01/07/17 01/08/17 01/08/17 01/08/17 07:00 15:00 23:00 07:00 15:00 23:00 Intake Total 1500 ml 720 ml Balance 1500 ml 720 ml Intake Oral 1500 ml 720 ml # Voids 4 3 # Bowel Movements 2 1 Result Diagram: 01/06/17 0630 01/07/17 0755 Imaging Last Impressions Soft Tissue Ultrasound 01/07/17 0000 Signed Impressions: Service Date/Time: Saturday, January 07, 2017 11:53 - CONCLUSION: 1. Cellulitis without evidence of abscess. Ky Bach MD Liver Ultrasound 01/05/17 0000 Signed Impressions: Service Date/Time: Thursday, January 05, 2017 20:47 - CONCLUSION: 1. Hepatomegaly without focal lesion. 2. No gallstones seen. Normal dimension common hepatic duct. Bairon Moseley MD Hand X-Ray 01/05/17 0000 Signed Impressions: Service Date/Time: Thursday, January 05, 2017 17:46 - CONCLUSION: Nonspecific soft tissue swelling. Otherwise unremarkable exam. Jason Vera MD Chest X-Ray 01/05/17 0000 Signed Impressions: Service Date/Time: Thursday, January 05, 2017 19:23 - CONCLUSION: No focal infiltrates seen. Bairon Moseley MD Objective Remarks GENERAL: This is a well-nourished, well-developed patient, in no apparent distress. CARDIOVASCULAR: Regular rate and rhythm without murmurs, gallops, or rubs. RESPIRATORY: Clear to auscultation. Breath sounds equal bilaterally. No wheezes , rales, or rhonchi. GASTROINTESTINAL: Abdomen soft, non-tender, nondistended. Normal active bowel sounds MUSCULOSKELETAL: right hand swelling improved; lead oxide mill tender and red. improved ROM. other 3 Extremities without clubbing, cyanosis, or edema. NEURO: Alert & Oriented x4 to person, place, time, situation. Moves all ext x4 A/P Problem List: (1) Infection of right hand ICD Code: L08.9 Status: Acute (2) Hepatitis C ICD Code: B19.20 Status: Acute Assessment and Plan (1) Infection of right hand ICD Code: L08.9 Status: Acute Plan: Sepsis and IVDU Continue with Empiric vancomycin and IV clinda/po bactrim, blood cultures negative to date, Follow-up chest x-ray and urine cultures are negative 2-D echo wnl Avoid IV narcotics and follow clinically Continue hydration hand surgeon iwona appreciated us shows no abscess (2) Hepatitis C ICD Code: B19.20 Status: Acute Plan: LFTs elevated, work up in progress New per patient Assessment and Plan likely dc on po bactrim/clinda when improved and if blood cultures negative Brittany Delvalle MD Jan 08, 2017 08:56
[2017-01-08] MEDS ORDERED: POVIDONE IODINE 10% OINT 30 GM TUBE TOPICAL SCH (09:00)
[2017-01-08 14:14] VITALS: BP 101/65; PULSE 99; RESP 16; TEMP 96.9; O2SAT 99
[2017-01-08 18:57] VITALS: BP 94/50; PULSE 99; RESP 14; TEMP 98.1; O2SAT 98
[2017-01-08 20:00] VITALS: BP 135/76; PULSE 107; RESP 21; TEMP 96.2; O2SAT 95
[2017-01-09] VITALS: BP 132/63; PULSE 86; RESP 20; TEMP 96; O2SAT 98
[2017-01-09] MEDS: VANCOMYCIN INJ 1,250 MG in SODIUM CHLOR 0.9% 250 ML INJ 250 ML IV SCH ×2 (00:52→08:24)
[2017-01-09] MEDS: SODIUM CHLOR 0.9% 1000 ML INJ 1,000 ML IV SCH (01:56)
[2017-01-09] MEDS: CLINDAMYCIN INJ 600 MG in SODIUM CHLORIDE 0.9% INJ 100 ML IV SCH (04:00)
[2017-01-09 08:00] VITALS: BP 130/88; PULSE 84; RESP 20; TEMP 96.4; O2SAT 100
[2017-01-09] MEDS: NICOTINE 21 MG/24 HR PATCH T-DERMAL SCH (08:23)
[2017-01-09] MEDS: SULFAMETHOXAZOLE-TRIMETHOPRIM DS 800-160 MG TAB PO SCH (08:23)
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
[2017-01-09] MEDS ORDERED: CLIN1CAP6 PO (08:46)
[2017-01-09] MEDS ORDERED: OXYC-392 PO (09:48)
[2017-01-10 11:52] LABS: HCV RNA PCR LOGIU/ML 6.57 (())
== END 2017-01-09 12:10 | disposition home or self-care (01) | DRG 872 ==
LOC: PHED 16:25 → PHEDA 17:54 → PH3B 19:11
PROVIDERS: ADMIT Hospitalist; ATTEND Hospitalist
DX: A41.9 Sepsis, unspecified organism (principal); B17.10 Acute hepatitis C without hepatic coma; L03.113 Cellulitis of right upper limb; B95.62 Methicillin resistant Staphylococcus aureus infection as the cause of diseases classified elsewhere; F17.210 Nicotine dependence, cigarettes, uncomplicated; F19.10 Other psychoactive substance abuse, uncomplicated; Z86.14 Personal history of Methicillin resistant Staphylococcus aureus infection
CPT/HCPCS: 71020; 73120; 76705; 76937; 76999; 80048; 80053; 80074; 80202; 80307; 82565; 83605; 85025; 85610; 85730; 86803; 87040; 87522; 93306; 96365; J0131; J0696; J3370; J7030; J7050

== ENCOUNTER 2017-01-21 16:59 | Emergency (ER) | payer MEDICARE ==
[~2017-01-21] VITALS: Ht 177.8 cm; Wt 86.0 kg
[~2017-01-21 16:59] MED LIST changes: +CLIN1CAP6 PO; +OXYC-392 PO
[2017-01-21 17:06] VITALS: BP 128/58; PULSE 100; RESP 20; TEMP 99.2; O2SAT 100
--- NOTE | 2017-01-21 18:30 | PD ---
HPI Chief Complaint: Bite or Sting Time Seen by Provider: 18:30 Travel History International Travel<30 days: No Contact w/Intl Traveler<30days: No Traveled to known affect area: No PFSH Past Medical History Hx Anticoagulant Therapy: No Arthritis: No Asthma: Yes Autoimmune Disease: No Cancer: No Cardiovascular Problems: No COPD: No Diabetes: No Diminished Hearing: No Endocrine: No Gastrointestinal Disorders: No Genitourinary: No Immune Disorder: No Kidney Stones: Yes Musculoskeletal: Yes (HX BACK SX WITH HARDWARE) Neurologic: No Psychiatric: No Reproductive: No Respiratory: Yes (SLIGHT ASTHMA) Thyroid Disease: No Tetanus Vaccination: < 5 Years Influenza Vaccination: Yes Past Surgical History Abdominal Surgery: No AICD: No Arteriovenous Shunt: No Body Medical Devices: RODS AND SCREWS IN BACK Cardiac Surgery: No Ear Surgery: No Endocrine Surgery: No Eye Surgery: No Genitourinary Surgery: No Insulin Pump: No Joint Replacement: No Neurologic Surgery: No Oral Surgery: No Pacemaker: No Thoracic Surgery: No Other Surgery: Yes Social History Alcohol Use: No Tobacco Use: Yes (1/2 ppd today) Substance Use: No Allergies-Medications (Allergen,Severity, Reaction): Coded Allergies: *MDRO Multi-Drug Resistant Organism (Verified Adverse Reaction, Unknown, MRSA, 01/21/17) MRSA (foot) - 12/27/16 Reported Meds & Prescriptions Reported Meds & Active Scripts Active Oxycodone (Oxycodone HCl) 5 Mg Tab 5 Mg PO Q6H PRN Data Data Last Documented VS Vital Signs Date Time Temp Pulse Resp B/P Pulse Ox O2 Delivery O2 Flow Rate FiO2 01/21/17 17:06 99.2 100 20 128/58 100 Room Air Ileana Hodge MD Jan 21, 2017 18:30
--- NOTE | 2017-01-21 19:12 | PD ---
HPI Chief Complaint: Bite or Sting Time Seen by Provider: 18:57 Travel History International Travel<30 days: No Contact w/Intl Traveler<30days: No Traveled to known affect area: No History of Present Illness HPI 46 yo M arrives with hand pain, swelling thirteen days following discharge from here after admission for IVDA related hand cellulitis. Endocarditis evaluation on prior admission was negative. Compliance with bactrim outpatient reported. Complicating factors include homelessness. He denies interval IVDA however reports using oral opioids for pain control. No fever. Pain is constant and worse with palpation and ROM. He denies interval trauma. PFSH Past Medical History Hx Anticoagulant Therapy: No Arthritis: No Asthma: Yes Autoimmune Disease: No Cancer: No Cardiovascular Problems: No COPD: No Diabetes: No Diminished Hearing: No Endocrine: No Gastrointestinal Disorders: No Genitourinary: No Immune Disorder: No Kidney Stones: Yes Musculoskeletal: Yes (HX BACK SX WITH HARDWARE) Neurologic: No Psychiatric: No Reproductive: No Respiratory: Yes (SLIGHT ASTHMA) Thyroid Disease: No Tetanus Vaccination: < 5 Years Influenza Vaccination: Yes Past Surgical History Abdominal Surgery: No AICD: No Arteriovenous Shunt: No Body Medical Devices: RODS AND SCREWS IN BACK Cardiac Surgery: No Ear Surgery: No Endocrine Surgery: No Eye Surgery: No Genitourinary Surgery: No Insulin Pump: No Joint Replacement: No Neurologic Surgery: No Oral Surgery: No Pacemaker: No Thoracic Surgery: No Other Surgery: Yes Social History Alcohol Use: No Tobacco Use: Yes (1/2 ppd today) Substance Use: No Allergies-Medications (Allergen,Severity, Reaction): Coded Allergies: *MDRO Multi-Drug Resistant Organism (Verified Adverse Reaction, Unknown, MRSA, 01/21/17) MRSA (foot) - 12/27/16 Reported Meds & Prescriptions Reported Meds & Active Scripts Active Oxycodone (Oxycodone HCl) 5 Mg Tab 5 Mg PO Q6H PRN Review of Systems Except as stated in HPI: all other systems reviewed are Neg Physical Exam Narrative GENERAL: 31 yo M, WNWD, NAD SKIN: Warm and dry. two skin lesions about the ulnar aspect of the fifth metacarpal, the larger approximately 2cm. no fluctuant lesion. there is an approx 2cm pustular lesions along the dorsal R hand. generalized TTP throughout R hand present. slight induration throughout present. HEAD: Atraumatic. Normocephalic. EYES: Pupils equal and round. No scleral icterus. No injection or drainage. ENT: No nasal bleeding or discharge. Mucous membranes pink and moist. NECK: Trachea midline. No JVD. CARDIOVASCULAR: Tachycardia. Regular. RESPIRATORY: No accessory muscle use. Clear to auscultation. Breath sounds equal bilaterally. GASTROINTESTINAL: Abdomen soft, non-tender, nondistended. Hepatic and splenic margins not palpable. MUSCULOSKELETAL: Extremities without clubbing, cyanosis, or edema. No obvious deformities. NEUROLOGICAL: Awake and alert. No obvious cranial nerve deficits. Motor grossly within normal limits. Five out of 5 muscle strength in the arms and legs. Normal speech. PSYCHIATRIC: Appropriate mood and affect; insight and judgment normal. Data Data Last Documented VS Vital Signs Date Time Temp Pulse Resp B/P Pulse Ox O2 Delivery O2 Flow Rate FiO2 01/21/17 20:54 90 16 97 01/21/17 17:06 99.2 128/58 Room Air VS reviewed Orders Basic Metabolic Panel (Bmp) (01/21/17 19:01) Complete Blood Count With Diff (01/21/17 19:01) Blood Culture (01/21/17 19:01) Wound Culture And Gram Stain (01/21/17 19:01) Iv Access Insert/Monitor (01/21/17 19:01) Acetamin-Hydrocod 325-5 Mg ([place] 5-325 (01/21/17 19:15) Hand, Complete ([id number]) (01/21/17 ) Vancomycin Inj (Vancomycin Inj) (01/21/17 19:15) Sodium Chlor 0.9% 1000 Ml Inj (Ns 1000 M (01/21/17 20:00) Ice/Cold Pack (01/21/17 20:22) Admit Order (Ed Use Only) (01/21/17 20:51) Labs Laboratory Tests Test 01/21/17 18:50 White Blood Count 13.3 TH/MM3 Red Blood Count 4.88 MIL/MM3 Hemoglobin 14.0 GM/DL Hematocrit 42.7 % Mean Corpuscular Volume 87.6 FL Mean Corpuscular Hemoglobin 28.7 PG Mean Corpuscular Hemoglobin 32.8 % Concent Red Cell Distribution Width 13.7 % Platelet Count 282 TH/MM3 Mean Platelet Volume 7.8 FL Neutrophils (%) (Auto) 74.6 % Lymphocytes (%) (Auto) 16.3 % Monocytes (%) (Auto) 8.2 % Eosinophils (%) (Auto) 0.5 % Basophils (%) (Auto) 0.4 % Neutrophils # (Auto) 9.9 TH/MM3 Lymphocytes # (Auto) 2.2 TH/MM3 Monocytes # (Auto) 1.1 TH/MM3 Eosinophils # (Auto) 0.1 TH/MM3 Basophils # (Auto) 0.0 TH/MM3 CBC Comment DIFF FINAL Differential Comment Sodium Level 137 MEQ/L Potassium Level 4.2 MEQ/L Chloride Level 101 MEQ/L Carbon Dioxide Level 29.3 MEQ/L Anion Gap 7 MEQ/L Blood Urea Nitrogen 12 MG/DL Creatinine 0.79 MG/DL Estimat Glomerular Filtration 116 ML/MIN Rate Random Glucose 69 MG/DL Calcium Level 9.1 MG/DL MDM Medical Decision Making Medical Screen Exam Complete: Yes Emergency Medical Condition: Yes Medical Record Reviewed: Yes Differential Diagnosis Cellulitis, abscess, sepsis, compartment syndrome Narrative Course The patient reports to me that he took clindamycin and Bactrim for 7 days. About 3 days thereafter he developed a recurrence of the right hand cellulitis. He'll be admitted for IV antibiotics as well as social scenario surrounding this case which includes homelessness. According to the triage nurse note the patient did not take outpatient oral antibiotics. CBC & BMP Diagram 01/21/17 18:50 HAND XR: No bone dz The mother has arrived and confirmed the patient did not bite clindamycin because he couldn't afford it. She states he can stay with her. We'll send the patient home with 2 weeks of Bactrim. Prior microbiology isolate revealed Bactrim sensitive MRSA. A very short course of Lortab will be provided as the patient states he is in quite bad pain. We talked about an Satya bandage ice and elevation. We also talked about the knee very important task head which is to stop opioid dependency. Recent studies including Annals of [employer] were cited. patient and mother verbalized understanding. Sepsis Criteria SIRS Criteria (2 or more): Heart rate over 90, WBC > 39220, < 4000 or > 10% bands Sepsis Criteria (SIRS+source): Infect source susp/known Diagnosis Primary Impression: Infection of right hand Referrals: Primary Care Physician 2 days Med/Other Pt SpecificInfo: Prescription(s) given Scripts Hydrocodone-Acetaminophen (Lortab)5-325 Mg Tab1-2 Tab PO Q6H PRN (PAIN SCALE 6 TO 10) #12 TAB Ref 0 Prov:Sergio Moses MD 01/21/17 Sulfamethoxazole-Trimethoprim (Bactrim DS)800-160 Mg Tab1 Tab PO BID 14 Days Ref 0 Prov:Sergio Moses MD 01/21/17 Disposition: 01 DISCHARGE HOME Condition: Stable Sergio Moses MD Jan 21, 2017 19:12
[2017-01-21] MEDS ORDERED: VANCOMYCIN INJ 1,750 MG in SODIUM CHLORID 0.9% 500 ML INJ 500 ML IV ONE (19:15)
[2017-01-21] MEDS ORDERED: ACETAMINOPHEN/HYDROcodone 325 MG/5 MG TAB PO ONE (19:15)
[2017-01-21 19:53] LABS: AUTOMATED NEUTROPHIL # 9.9 TH/MM3 (1.8-7.7); BASOPHIL % 0.4 % (0.0-2.0); EOSINOPHIL # 0.1 TH/MM3 (0-0.4); EOSINOPHIL % 0.5 % (0.0-4.0); HEMATOCRIT 42.7 % (39.0-51.0); HEMO FLAGS DIFF FINAL; LYMPH % 16.3 % (9.0-44.0); LYMPHOCYTE # 2.2 TH/MM3 (1.0-4.8); MEAN CELL VOLUME 87.6 FL (80.0-100.0); MEAN CORPUSCULAR HEMOGLOBIN 28.7 PG (27.0-34.0); MEAN CORPUSCULAR HGB CONC 32.8 % (32.0-36.0); MONO % 8.2 % (0.0-8.0); NEUT % 74.6 % (16.0-70.0); PLATELET COUNT 282 TH/MM3 (150-450); RED BLOOD COUNT 4.88 MIL/MM3 (4.50-5.90); RED CELL DISTRIBUTION WIDTH 13.7 % (11.6-17.2); WHITE BLOOD COUNT 13.3 TH/MM3 (4.0-11.0)
[2017-01-21] MEDS ORDERED: SODIUM CHLOR 0.9% 1000 ML INJ 1,000 ML IV ONE (20:00)
--- NOTE | 2017-01-21 20:07 | RADRPT ---
EXAM DATE/TIME: 01/21/2017 19:15 [facility] COMPARISON: No previous studies available for comparison. INDICATIONS : Right hand pain and swelling. Patient states he cut his hand one week ago and it began to swell. MEDICAL HISTORY : None. SURGICAL HISTORY : None. ENCOUNTER: Initial ACUITY: 1 week PAIN SCORE: 9/10 LOCATION: Right hand. FINDINGS: Three view examination of the right hand demonstrates no dislocation, or fracture. The carpal bones appear intact. The interphalangeal and metacarpophalangeal joints are intact. Bony mineralization is normal. There is prominent dorsal soft tissue swelling identified. CONCLUSION: Prominent dorsal soft tissue swelling of the hand. Vicente Carter MD on January 21, 2017 at 20:05 Board Certified Radiologist. This report was verified electronically.
[2017-01-21 20:09] LABS: BICARBONATE 29.3 MEQ/L (21.0-32.0); POTASSIUM 4.2 MEQ/L (3.5-5.1)
[2017-01-21 20:54] VITALS: PULSE 90; RESP 16; O2SAT 97
[2017-01-21] MEDS ORDERED: BACT800T5 PO (21:02)
[2017-01-21] MEDS ORDERED: HYDR-3533 PO (21:03)
[2017-01-21 21:59] VITALS: BP 134/67; TEMP 98.8
== END 2017-01-21 22:14 | disposition home or self-care (01) ==
LOC: NEPE 16:59 → NEDA 20:53 → UNDOADMIN 20:53 → UNDODISIN 22:17
DX: L03.113 Cellulitis of right upper limb (principal); F11.20 Opioid dependence, uncomplicated; B95.62 Methicillin resistant Staphylococcus aureus infection as the cause of diseases classified elsewhere; F17.210 Nicotine dependence, cigarettes, uncomplicated; J45.909 Unspecified asthma, uncomplicated; Z59.0 Homelessness
CPT/HCPCS: 73130; 80048; 85025; 87040; 87070; 87205; 96374; 99285; J3370; J7030; J7040

== ENCOUNTER 2017-02-07 20:43 | Emergency (ER) | payer MEDICARE ==
[~2017-02-07] VITALS: Ht 177.8 cm; Wt 81.0 kg
[~2017-02-07 20:43] MED LIST changes: -CLIN1CAP6 PO; +HYDR-3533 PO; -TRAM50TA PO
[2017-02-07 20:55] VITALS: BP 142/82; PULSE 102; RESP 16; TEMP 98.6; O2SAT 96
--- NOTE | 2017-02-07 21:22 | PD ---
HPI . heroin overdose Chief Complaint: OD/ Ingestion Time Seen by Provider: 21:17 Travel History International Travel<30 days: No Contact w/Intl Traveler<30days: No Traveled to known affect area: No History of Present Illness HPI 31-year-old male with chronic back pain who tells me he's been addicted to opiates for a long time due to back surgeries in the past here status post overdose on heroin. Apparently patient was using some heroin to get high and does not recall exactly what happened after that. He does recall that he was at a [employer] restaurant. Apparently paramedics were called in and they administered 2 mg of Narcan. Patient then had a GCS of 15. He is now awake alert and oriented 4. All of his responses are appropriate. He is requesting to go home. He tells me that he had no intention of overdose. He denies any suicidal or homicidal ideation. PFSH Past Medical History Hx Anticoagulant Therapy: No Arthritis: No Asthma: Yes Autoimmune Disease: No Cancer: No Cardiovascular Problems: No COPD: No Diabetes: No Diminished Hearing: No Endocrine: No Gastrointestinal Disorders: No Genitourinary: No Immune Disorder: No Kidney Stones: Yes Musculoskeletal: Yes (HX BACK SX WITH HARDWARE) Neurologic: No Psychiatric: No Reproductive: No Respiratory: Yes (SLIGHT ASTHMA) Thyroid Disease: No Past Surgical History Abdominal Surgery: No AICD: No Arteriovenous Shunt: No Body Medical Devices: RODS AND SCREWS IN BACK Cardiac Surgery: No Ear Surgery: No Endocrine Surgery: No Eye Surgery: No Genitourinary Surgery: No Insulin Pump: No Joint Replacement: No Neurologic Surgery: No Oral Surgery: No Pacemaker: No Thoracic Surgery: No Other Surgery: Yes Social History Alcohol Use: No Tobacco Use: Yes (1/2 ppd today) Substance Use: No Allergies-Medications (Allergen,Severity, Reaction): Coded Allergies: Toradol (Verified Allergy, Severe, HIVES, 02/07/17) Tylenol (Verified Allergy, Severe, Hives, 02/07/17) *MDRO Multi-Drug Resistant Organism (Verified Adverse Reaction, Unknown, MRSA, 01/21/17) MRSA (foot) - 12/27/16 Reported Meds & Prescriptions Reported Meds & Active Scripts Active No Active Prescriptions or Reported Medications Review of Systems General / Constitutional: No: Fever Eyes: No: Visual changes HENT: No: Headaches Cardiovascular: No: Chest Pain or Discomfort Respiratory: No: Shortness of Breath Gastrointestinal: No: Abdominal Pain Genitourinary: No: Dysuria Musculoskeletal: No: Pain Skin: No Rash Neurologic: No: Weakness Psychiatric: Positive: Substance Abuse, No: Depression Endocrine: No: Polydipsia Hematologic/Lymphatic: No: Easy Bruising Physical Exam Narrative GENERAL: AAO x 3, no acute distress, Well-nourished, well-developed patient. SKIN: Warm and dry. No visible rashes or bruising. HEAD: Normocephalic and atraumatic. EYES: No scleral icterus. No injection or drainage. EOM intact, ENT: No nasal drainage noted. Mucous membranes pink. Airway patent. NECK: Supple, trachea midline. No JVD. CARDIOVASCULAR: Mildly tachycardic on exam. Heart rate 114. RESPIRATORY: Breath sounds equally diminished bilaterally. No rhonchi, Rales or wheezing GASTROINTESTINAL: Abdomen soft, non-tender, nondistended. No rebound or guarding EXTREMITIES: No cyanosis or edema. No tenderness to palpation of upper and lower extremities BACK: No obvious deformity. 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 Data Data Last Documented VS Vital Signs Date Time Temp Pulse Resp B/P Pulse Ox O2 Delivery O2 Flow Rate FiO2 02/08/17 00:01 96 18 130/74 98 02/07/17 22:31 Room Air 02/07/17 20:55 98.6 MDM Medical Decision Making Medical Screen Exam Complete: Yes Emergency Medical Condition: Yes Medical Record Reviewed: Yes Differential Diagnosis heroin overdose, opioid addiction, polysubstance abuse, Narrative Course 31-year-old man here that is post heroin overdose. He was given 2 mg of Narcan and had a return of GCS 15. Patient now has no specific complaints. Exam is unremarkable except for mild tachycardia. Patient will need to be observed for the next 2-3 hours. If he is doing okay, we will discharge him. I have discussed this with the patient. He is in agreement with the recommendations. Case has been discussed with Dr. Warner, who will make recommendations for patient's disposition. Diagnosis Primary Impression: Overdose Qualified Code: T50.901A - Accidental drug overdose, initial encounter Additional Instructions: Please refrain from using drugs. Try to find a detox/rehab program to help you get off of these substances. Scripts No Active Prescriptions or Reported Meds Condition: Jazmin Becker Feb 07, 2017 21:21
[2017-02-07 21:29] VITALS: BP 142/80; PULSE 98; RESP 18; O2SAT 97
[2017-02-07 22:31] VITALS: BP 136/73; PULSE 96; RESP 18; O2SAT 99
--- NOTE | 2017-02-07 23:44 | PD ---
Data Data Last Documented VS Vital Signs Date Time Temp Pulse Resp B/P Pulse Ox O2 Delivery O2 Flow Rate FiO2 02/07/17 22:31 96 18 136/73 99 Room Air 02/07/17 20:55 98.6 MDM Supervised Visit with REMEDIOS: Yes Narrative Course I, Dr. Warner, have reviewed the advance practice practioner's documentation and am in agreement, met with the patient face to face, made the diagnosis, and the medical decision making was done by me. *My assessment and Findings: 31-year-old male with chronic back pain, IV drug abuse addicted to heroin here after likely overdose. Patient found unresponsive outside of a [employer] restaurant. GCS 3, hypoventilating and cyanotic. Given 2 mg Narcan per EMS with improvement into GCS 15. Patient states that he was recreationally using heroin and attempted to self medicate. This is not an overdose attempt. He denies any other coingestions. Patient was monitored in our emergency department for 3 hours without any change in mental status and will be discharged home. He was offered chemical dependency treatment referrals but refuses, stating he "needs to get in with pain management". Diagnosis Primary Impression: Opioid overdose Qualified Code: T40.2X1A - Opioid overdose, accidental or unintentional, initial encounter Additional Impressions: Overdose Qualified Code: T50.901A - Accidental drug overdose, initial encounter IV drug abuse Referrals: [facility] for appointment Additional Instruction: Please refrain from using drugs. Try to find a detox/rehab program to help you get off of these substances. Med/Other Pt SpecificInfo: No Change to Meds Scripts No Active Prescriptions or Reported Meds Disposition: 01 DISCHARGE HOME Condition: Stable Opal Warner MD Feb 07, 2017 23:44
[2017-02-08 00:01] VITALS: BP 130/74
== END 2017-02-08 00:10 | disposition home or self-care (01) ==
LOC: NEPE 20:43
DX: T40.1X1A Poisoning by heroin, accidental (unintentional), initial encounter (principal); M54.9 Dorsalgia, unspecified; G89.29 Other chronic pain; R00.0 Tachycardia, unspecified; J45.909 Unspecified asthma, uncomplicated; F17.200 Nicotine dependence, unspecified, uncomplicated; Z88.6 Allergy status to analgesic agent; Z88.5 Allergy status to narcotic agent
CPT/HCPCS: 99283

== ENCOUNTER 2017-02-26 17:07 | Inpatient (IN) | payer MEDICARE ==
[2017-02-26] VITALS (7 sets, daily range): BP systolic 109–115; BP diastolic 55–78; PULSE 72–98; RESP 16–18; TEMP 98.9; O2SAT 98–100
[~2017-02-26] VITALS: Ht 180.3 cm; Wt 81.0 kg
[2017-02-26] MEDS ORDERED: IOHEXOL 350 MG/ML 10 ML VIAL (for RAD DIAG) IVCONTRAST ONE (17:08)
[2017-02-26] MEDS ORDERED: SODIUM CHLOR 0.9% 1000 ML INJ 1,000 ML IV ONE (18:45)
--- NOTE | 2017-02-26 19:18 | RADRPT ---
EXAM DATE/TIME: 02/26/2017 18:34 [facility] COMPARISON: No previous studies available for comparison. INDICATIONS : Pain, swelling and redness right knee, denies injury MEDICAL HISTORY : None. SURGICAL HISTORY : None. ENCOUNTER: Initial ACUITY: 3 days PAIN SCORE: 10/10 LOCATION: Right Knee FINDINGS: Four views of the right knee demonstrate no fracture or dislocation. No joint effusion is present. Th ere is no significant arthropathy and mineralization is within normal limits. No soft tissue abnormal ity or radiopaque foreign body is identified. CONCLUSION: No right knee abnormality is identified. Magdiel Bajwa MD on February 26, 2017 at 19:16 Board Certified Radiologist. This report was verified electronically.
--- NOTE | 2017-02-26 19:26 | RADRPT ---
EXAM DATE/TIME: 02/26/2017 18:59 [facility] COMPARISON: CHEST PA & LAT, January 05, 2017, 19:23. INDICATIONS : Fever. MEDICAL HISTORY : None. SURGICAL HISTORY : None. ENCOUNTER: Initial ACUITY: 1 day PAIN SCORE: 0/10 LOCATION: Bilateral chest FINDINGS: Portable AP view of the chest demonstrates a normal-sized cardiac silhouette. No effusion or pneumoth orax is identified. Questionable airspace opacity is present at the left lung base. Bones and soft ti ssues demonstrate no acute finding. CONCLUSION: Subtle airspace opacity at the left lung base representing either atelectasis or mild air space conso lidation. Magdiel Bajwa MD on February 26, 2017 at 19:23 Board Certified Radiologist. This report was verified electronically.
[2017-02-26] MEDS ORDERED: MORPHINE SULFATE 4 MG/ML INJ IV PUSH ONE (19:30)
[2017-02-26] MEDS ORDERED: ONDANSETRON HCL 4 MG/2 ML VIAL IV PUSH ONE (19:30)
[2017-02-26 19:39] LABS: AUTOMATED NEUTROPHIL # 6.6 TH/MM3 (1.8-7.7); BASOPHIL % 0.4 % (0.0-2.0); EOSINOPHIL # 0.1 TH/MM3 (0-0.4); EOSINOPHIL % 1.1 % (0.0-4.0); HEMO FLAGS DIFF FINAL; LYMPH % 25.3 % (9.0-44.0); LYMPHOCYTE # 2.7 TH/MM3 (1.0-4.8); MEAN CELL VOLUME 86.5 FL (80.0-100.0); MEAN CORPUSCULAR HEMOGLOBIN 28.9 PG (27.0-34.0); MEAN CORPUSCULAR HGB CONC 33.4 % (32.0-36.0); MONO % 11.2 % (0.0-8.0); PLATELET COUNT 307 TH/MM3 (150-450); RED BLOOD COUNT 4.86 MIL/MM3 (4.50-5.90); RED CELL DISTRIBUTION WIDTH 13.6 % (11.6-17.2); WHITE BLOOD COUNT 10.6 TH/MM3 (4.0-11.0)
--- NOTE | 2017-02-26 19:41 | PD ---
HPI Chief Complaint: Skin Problem Time Seen by Provider: 17:34 Travel History International Travel<30 days: No Contact w/Intl Traveler<30days: No Traveled to known affect area: No History of Present Illness HPI A 31-year-old male came to the emergency room with history of right knee pain and right fourth toe pain for past 1 day. Given IV drug abuser. Says that he noticed the swelling and pain. He seems uncomfortable. He is afebrile and vital signs are within acceptable limit. Patient does have history of MRSA. He claims to be using clean needles only. Patient is unable to ambulate because of the knee pain. He appears to be in significant distress. PFSH Past Medical History Narrative Medical List of his past medical, surgical, social and family history is reviewed from the nursing note. Hx Anticoagulant Therapy: No Arthritis: No Asthma: Yes Autoimmune Disease: No Cancer: No Cardiovascular Problems: No COPD: No Diabetes: No Diminished Hearing: No Endocrine: No Gastrointestinal Disorders: No Genitourinary: No Immune Disorder: No Implanted Vascular Access Dvce: Yes Kidney Stones: Yes Medical other: Yes (MRSA IN THE BLOOD, IV DRUG USE ) Musculoskeletal: Yes (HX BACK SX WITH HARDWARE, BACK PAIN ) Neurologic: No Psychiatric: No Reproductive: No Respiratory: Yes (SLIGHT ASTHMA) Immunizations Current: Yes Thyroid Disease: No Tetanus Vaccination: < 5 Years Influenza Vaccination: Yes Past Surgical History Abdominal Surgery: No AICD: No Arteriovenous Shunt: No Body Medical Devices: RODS AND SCREWS IN BACK Cardiac Surgery: No Ear Surgery: No Endocrine Surgery: No Eye Surgery: No Genitourinary Surgery: No Insulin Pump: No Joint Replacement: No Neurologic Surgery: No Oral Surgery: No Pacemaker: No Thoracic Surgery: No Other Surgery: Yes Social History Alcohol Use: No Tobacco Use: Yes (1/2 ppd today) Substance Use: Yes (herion daily, opitates, IV drug use ) Allergies-Medications (Allergen,Severity, Reaction): Coded Allergies: acetaminophen (Unverified Allergy, Severe, Hives, 02/26/17) ketorolac (Unverified Allergy, Severe, HIVES, 02/26/17) *MDRO Multi-Drug Resistant Organism (Verified Adverse Reaction, Unknown, MRSA, 02/26/17) MRSA (foot) - 12/27/16 Comments Of his allergies reviewed from the nursing note. Reported Meds & Prescriptions Reported Meds & Active Scripts Active No Active Prescriptions or Reported Medications Narrative Medication List of his home medications reviewed from the nursing note. Review of Systems Except as stated in HPI: all other systems reviewed are Neg Physical Exam Narrative GENERAL: Awake, alert, significant distress SKIN: Focused skin assessment warm/dry. Right knee lateral aspect has a erythematous nodular swelling that's tender to touch HEAD: Atraumatic. Normocephalic. EYES: Pupils equal and round. No scleral icterus. No injection or drainage. ENT: No nasal bleeding or discharge. Mucous membranes pink and moist. NECK: Trachea midline. No JVD. CARDIOVASCULAR: Regular rate and rhythm. No murmur appreciated. RESPIRATORY: No accessory muscle use. Clear to auscultation. Breath sounds equal bilaterally. GASTROINTESTINAL: Abdomen soft, non-tender, nondistended. Hepatic and splenic margins not palpable. MUSCULOSKELETAL: No obvious deformities. No clubbing. No cyanosis. No edema. Right knee swollen and decreased range of motion due to the pain NEUROLOGICAL: Awake and alert. No obvious cranial nerve deficits. Motor grossly within normal limits. Normal speech. PSYCHIATRIC: Appropriate mood and affect; insight and judgment normal. Data Data Last Documented VS Vital Signs Date Time Temp Pulse Resp B/P (MAP) Pulse Ox O2 Delivery O2 Flow Rate FiO2 02/26/17 21:04 73 18 109/63 (78) 98 Room Air 02/26/17 18:23 98.9 Orders Orders Knee, Complete (4vws) (02/26/17 ) Ed Poc Ultrasound (02/26/17 ) Complete Blood Count With Diff (02/26/17 18:31) Comprehensive Metabolic Panel (02/26/17 18:31) Prothrombin Time / Inr (Pt) (02/26/17 18:31) Lactic Acid Sepsis Protocol (02/26/17 18:31) Urinalysis - C+S If Indicated (02/26/17 18:31) Blood Culture (02/26/17 18:31) Chest, Single Ap (02/26/17 18:31) Blood Glucose (02/26/17 18:31) Ecg Monitoring (02/26/17 18:31) Iv Access Insert/Monitor (02/26/17 18:31) Oximetry (02/26/17 18:31) Oxygen Administration (02/26/17 18:31) Creatine Kinase (Cpk) (02/26/17 18:31) Sodium Chlor 0.9% 1000 Ml Inj (Ns 1000 M (02/26/17 18:45) Ct Knee W Iv Contrast (02/26/17 ) Morphine Inj (Morphine Inj) (02/26/17 19:30) Ondansetron Inj (Zofran Inj) (02/26/17 19:30) Vancomycin Inj (Vancomycin Inj) (02/26/17 19:45) Clindamycin Inj (Cleocin Inj) (02/26/17 19:45) Iohexol 350 Inj (Omnipaque 350 Inj) (02/26/17 17:08) Admit Order (Ed Use Only) (02/26/17 21:36) Labs Laboratory Tests Test 02/26/17 19:05 White Blood Count 10.6 TH/MM3 Red Blood Count 4.86 MIL/MM3 Hemoglobin 14.1 GM/DL Hematocrit 42.0 % Mean Corpuscular Volume 86.5 FL Mean Corpuscular Hemoglobin 28.9 PG Mean Corpuscular Hemoglobin Concent 33.4 % Red Cell Distribution Width 13.6 % Platelet Count 307 TH/MM3 Mean Platelet Volume 7.9 FL Neutrophils (%) (Auto) 62.0 % Lymphocytes (%) (Auto) 25.3 % Monocytes (%) (Auto) 11.2 % Eosinophils (%) (Auto) 1.1 % Basophils (%) (Auto) 0.4 % Neutrophils # (Auto) 6.6 TH/MM3 Lymphocytes # (Auto) 2.7 TH/MM3 Monocytes # (Auto) 1.2 TH/MM3 Eosinophils # (Auto) 0.1 TH/MM3 Basophils # (Auto) 0.0 TH/MM3 CBC Comment DIFF FINAL Differential Comment Prothrombin Time 12.0 SEC Prothromb Time International Ratio 1.1 RATIO Blood Urea Nitrogen 11 MG/DL Creatinine 0.92 MG/DL Random Glucose 52 MG/DL Total Protein 6.9 GM/DL Albumin 3.0 GM/DL Calcium Level 8.5 MG/DL Alkaline Phosphatase 77 U/L Aspartate Amino Transf (AST/SGOT) 73 U/L Alanine Aminotransferase (ALT/SGPT) 86 U/L Total Bilirubin 0.4 MG/DL Sodium Level 142 MEQ/L Potassium Level 3.6 MEQ/L Chloride Level 105 MEQ/L Carbon Dioxide Level 31.2 MEQ/L Anion Gap 6 MEQ/L Estimat Glomerular Filtration Rate 97 ML/MIN Lactic Acid Level 1.6 mmol/L Total Creatine Kinase 106 U/L MDM Medical Decision Making Medical Screen Exam Complete: Yes Emergency Medical Condition: Yes Medical Record Reviewed: Yes Differential Diagnosis Septic arthritis, necrotizing fasciitis, cellulitis Narrative Course 7:51 PM. Case was signed over to the oncoming ER physician. The x-ray of the knee does not show any effusion. I recommended a CT scan of the leg to rule out necrotizing fasciitis. Procedures EKG Prior to Arrival: No Scripts No Active Prescriptions or Reported Meds Ileana Hodge MD Feb 26, 2017 19:41
[2017-02-26] MEDS ORDERED: CLINDAMYCIN INJ 600 MG in SODIUM CHLORIDE 0.9% INJ 100 ML IV ONE (19:45)
[2017-02-26] MEDS ORDERED: VANCOMYCIN INJ 1,000 MG in SODIUM CHLOR 0.9% 250 ML INJ 250 ML IV ONE (19:45)
--- NOTE | 2017-02-26 19:45 | PD ---
Physical Exam Date Seen by Provider: Feb 26, 2017 Time Seen by Provider: 19:41 Narrative The patient is a 31-year-old male who was initially evaluated by the previous physician, Dr. Hodge. Please refer to the initial history, physical , diagnostic evaluation, and treatment modality plan. The patient was signed out at 7 PM with laboratory evaluation, x-ray evaluation, and possible CT evaluation pending for septic arthritis versus cellulitis. The patient does have a history of IVDA with opiates. Data Data Last Documented VS Vital Signs Date Time Temp Pulse Resp B/P (MAP) Pulse Ox O2 Delivery O2 Flow Rate FiO2 02/26/17 21:04 73 18 109/63 (78) 98 Room Air 02/26/17 18:23 98.9 Orders Orders Knee, Complete (4vws) (02/26/17 ) Ed Poc Ultrasound (02/26/17 ) Complete Blood Count With Diff (02/26/17 18:31) Comprehensive Metabolic Panel (02/26/17 18:31) Prothrombin Time / Inr (Pt) (02/26/17 18:31) Lactic Acid Sepsis Protocol (02/26/17 18:31) Urinalysis - C+S If Indicated (02/26/17 18:31) Blood Culture (02/26/17 18:31) Chest, Single Ap (02/26/17 18:31) Blood Glucose (02/26/17 18:31) Ecg Monitoring (02/26/17 18:31) Iv Access Insert/Monitor (02/26/17 18:31) Oximetry (02/26/17 18:31) Oxygen Administration (02/26/17 18:31) Creatine Kinase (Cpk) (02/26/17 18:31) Sodium Chlor 0.9% 1000 Ml Inj (Ns 1000 M (02/26/17 18:45) Ct Knee W Iv Contrast (02/26/17 ) Morphine Inj (Morphine Inj) (02/26/17 19:30) Ondansetron Inj (Zofran Inj) (02/26/17 19:30) Vancomycin Inj (Vancomycin Inj) (02/26/17 19:45) Clindamycin Inj (Cleocin Inj) (02/26/17 19:45) Iohexol 350 Inj (Omnipaque 350 Inj) (02/26/17 17:08) Labs Laboratory Tests Test 02/26/17 19:05 White Blood Count 10.6 TH/MM3 Red Blood Count 4.86 MIL/MM3 Hemoglobin 14.1 GM/DL Hematocrit 42.0 % Mean Corpuscular Volume 86.5 FL Mean Corpuscular Hemoglobin 28.9 PG Mean Corpuscular Hemoglobin Concent 33.4 % Red Cell Distribution Width 13.6 % Platelet Count 307 TH/MM3 Mean Platelet Volume 7.9 FL Neutrophils (%) (Auto) 62.0 % Lymphocytes (%) (Auto) 25.3 % Monocytes (%) (Auto) 11.2 % Eosinophils (%) (Auto) 1.1 % Basophils (%) (Auto) 0.4 % Neutrophils # (Auto) 6.6 TH/MM3 Lymphocytes # (Auto) 2.7 TH/MM3 Monocytes # (Auto) 1.2 TH/MM3 Eosinophils # (Auto) 0.1 TH/MM3 Basophils # (Auto) 0.0 TH/MM3 CBC Comment DIFF FINAL Differential Comment Prothrombin Time 12.0 SEC Prothromb Time International Ratio 1.1 RATIO Blood Urea Nitrogen 11 MG/DL Creatinine 0.92 MG/DL Random Glucose 52 MG/DL Total Protein 6.9 GM/DL Albumin 3.0 GM/DL Calcium Level 8.5 MG/DL Alkaline Phosphatase 77 U/L Aspartate Amino Transf (AST/SGOT) 73 U/L Alanine Aminotransferase (ALT/SGPT) 86 U/L Total Bilirubin 0.4 MG/DL Sodium Level 142 MEQ/L Potassium Level 3.6 MEQ/L Chloride Level 105 MEQ/L Carbon Dioxide Level 31.2 MEQ/L Anion Gap 6 MEQ/L Estimat Glomerular Filtration Rate 97 ML/MIN Lactic Acid Level 1.6 mmol/L Total Creatine Kinase 106 U/L [facility] Medical Record Reviewed: Yes Supervised Visit with REMEDIOS: No Interpretation(s) Laboratory Tests Test 02/26/17 19:05 White Blood Count 10.6 TH/MM3 Red Blood Count 4.86 MIL/MM3 Hemoglobin 14.1 GM/DL Hematocrit 42.0 % Mean Corpuscular Volume 86.5 FL Mean Corpuscular Hemoglobin 28.9 PG Mean Corpuscular Hemoglobin Concent 33.4 % Red Cell Distribution Width 13.6 % Platelet Count 307 TH/MM3 Mean Platelet Volume 7.9 FL Neutrophils (%) (Auto) 62.0 % Lymphocytes (%) (Auto) 25.3 % Monocytes (%) (Auto) 11.2 % Eosinophils (%) (Auto) 1.1 % Basophils (%) (Auto) 0.4 % Neutrophils # (Auto) 6.6 TH/MM3 Lymphocytes # (Auto) 2.7 TH/MM3 Monocytes # (Auto) 1.2 TH/MM3 Eosinophils # (Auto) 0.1 TH/MM3 Basophils # (Auto) 0.0 TH/MM3 CBC Comment DIFF FINAL Differential Comment Prothrombin Time 12.0 SEC Prothromb Time International Ratio 1.1 RATIO Blood Urea Nitrogen 11 MG/DL Creatinine 0.92 MG/DL Random Glucose 52 MG/DL Total Protein 6.9 GM/DL Albumin 3.0 GM/DL Calcium Level 8.5 MG/DL Alkaline Phosphatase 77 U/L Aspartate Amino Transf (AST/SGOT) 73 U/L Alanine Aminotransferase (ALT/SGPT) 86 U/L Total Bilirubin 0.4 MG/DL Sodium Level 142 MEQ/L Potassium Level 3.6 MEQ/L Chloride Level 105 MEQ/L Carbon Dioxide Level 31.2 MEQ/L Anion Gap 6 MEQ/L Estimat Glomerular Filtration Rate 97 ML/MIN Lactic Acid Level 1.6 mmol/L Total Creatine Kinase 106 U/L Last Impressions Chest X-Ray 02/26/17 1831 Signed Impressions: Service Date/Time: February 18:59 - CONCLUSION: Subtle airspace opacity at the left lung base representing either atelectasis or mild air space consolidation. Magdiel Bajwa MD Knee X-Ray 02/26/17 0000 Signed Impressions: Service Date/Time: February 18:34 - CONCLUSION: No right knee abnormality is identified. Magdiel Bajwa MD CT of the knee reveals changes consistent with cellulitis, no evidence of joint effusion Differential Diagnosis Differential diagnosis includes septic arthritis, cellulitis, necrotizing fasciitis, abscess, immunocompromised. Narrative Course The patient was initially evaluated by the previous physician, Dr. Hodge. Please refer to the initial history, physical, diagnostic evaluation, and treatment modality plan. The patient was signed out at 7 PM laboratory evaluation, x-ray evaluation, and possible CT evaluation pending. The patient had a bedside ultrasound performed of the knee which reveals slightly changes but no obvious effusion or abscess. Therefore, CT of the knee was obtained with IV contrast. The patient was vault teller morphine, Zofran, and IV fluids. The patient was covered with vancomycin and clindamycin after blood cultures were obtained. CT of the knee reveals cellulitic changes, no evidence of joint effusion. I doubt septic knee/septic arthritis, however, patient does have cellulitis with history of IVDA. Patient will benefit from IV antibiotics until initial blood cultures are resulted. If initial blood cultures reveal no growth, the patient could be discharged home on medications at covered for MRSA. Blood cultures are positive, the patient may need definitive IV antibiotic treatment. Procedures Procedure Narrative A bedside ultrasound was performed with a linear probe of the right knee. Ultrasound revealed cellulitic changes but no obvious abscess or large knee effusion. The patient tolerated the procedure without difficulty. There was no obvious complications. Physician Communication Physician Communication The on-call medical service was paged for 23 hour observation. I discussed the patient with Dr. Monte who agrees with 23 hour observation. Diagnosis Primary Impression: Cellulitis of right knee Additional Impression: IV drug abuse Admitting Information Admitting Physician Requests: Observation Scripts No Active Prescriptions or Reported Meds Condition: Stable Aj Wolff MD Feb 26, 2017 19:45
[2017-02-26 19:52] LABS: INTERNATIONAL NORMALIZED RATIO 1.1 RATIO
[2017-02-26 20:12] LABS: ANION GAP 6 MEQ/L (5-15); AST (GOT) 73 U/L (15-37); BICARBONATE 31.2 MEQ/L (21.0-32.0); BLOOD UREA NITROGEN 11 MG/DL (7-18); CHLORIDE 105 MEQ/L (98-107); GLOMERULAR FILTRATION RATE 97 ML/MIN (>89); POTASSIUM 3.6 MEQ/L (3.5-5.1); SODIUM (NA) 142 MEQ/L (136-145)
[2017-02-26 20:13] LABS: ALT (GPT) 86 U/L (12-78)
[2017-02-26 20:15] LABS: ALKALINE PHOSPHATASE 77 U/L (45-117); CREATINE KINASE 106 U/L (39-308); TOTAL BILIRUBIN ADULT 0.4 MG/DL (0.2-1.0)
--- NOTE | 2017-02-26 21:02 | RADRPT ---
EXAM DATE/TIME: 02/26/2017 20:32 [facility] COMPARISON: KNEE RIGHT COMPLETE (4VWS), February 26, 2017, 18:34. INDICATIONS : Right knee pain, swelling and redness. Evaluate for abscess. IV CONTRAST: 75 cc Omnipaque 350 (iohexol) IV RADIATION DOSE: 7.31 CTDIvol (mGy) MEDICAL HISTORY : IV drug use. SURGICAL HISTORY : None. ENCOUNTER: Initial ACUITY: 1 day PAIN SCALE: 5/10 LOCATION: Right knee TECHNIQUE: Volumetric scanning of the knee was performed. Using automated exposure control and adjustment of th e mA and/or kV according to patient size, radiation dose was kept as low as reasonably achievable to obtain optimal diagnostic quality images. DICOM format image data is available electronically for re view and comparison. FINDINGS: BONES: No fracture. Alignment is within normal limits. JOINTS: No evidence of joint narrowing or effusion. SOFT TISSUES: There is subcutaneous edema and skin thickening involving the anterolateral and anterior aspect of th e knee. No fluid collection or abscess is identified. Muscles demonstrate no acute finding. CONCLUSION: There is subcutaneous edema and skin thickening involving the anterolateral and anterior aspect of th e right knee. The appearance is characteristic of a cellulitis. No abscess is identified. The lack of a joint effusion suggests against any involvement of the joint space. Magdiel Bajwa MD on February 26, 2017 at 20:58 Board Certified Radiologist. This report was verified electronically.
[2017-02-26] MEDS ORDERED: GADODIAMIDE PF 287 MG/ML 20 ML VIAL (for RAD MRI) IVCONTRAST ONE (21:40)
[2017-02-26] MEDS ORDERED: NALOXONE HCL 0.4 MG/ML AMP IV PRN (22:00)
[2017-02-26] MEDS ORDERED: SODIUM CHLORIDE 0.9% FLUSH 10 ML FLUSH IV FLUSH PRN (22:00)
[2017-02-27] VITALS (9 sets, daily range): BP systolic 96–140; BP diastolic 58–72; PULSE 64–91; RESP 16–18; TEMP 97.5–98.7; O2SAT 95–99
[2017-02-27] MEDS: CLINDAMYCIN INJ 900 MG in SODIUM CHLORIDE 0.9% INJ 100 ML IV SCH ×4 (02:22→21:36)
--- NOTE | 2017-02-27 05:22 | HHI.HP ---
HPI Service [facility] Primary Care Physician No Primary Care Physician Admission Diagnosis cellulitis right knee, IV drug use Diagnoses: (1) Cellulitis of right knee Chief Complaint: Right knee pain Travel History International Travel<30 Days: No Contact w/Intl Traveler <30 Da: No Traveled to Known Affected Are: No History of Present Illness Written by Shantel Palma, acting as scribe for Dr. Monte on 02/27/17 at 05:22. Patient is seen in the CDU. He reports that he presented to the hospital for evaluation of right leg painful lesion in the area of the right knee. He reports a history of MRSA on right hand a "couple of months ago". He is an IVDA. Denies fever, nausea, vomiting, diarrhea, chest pain, or shortness of breath. Reports cold chills. He reports a history of back surgery history and states he has metal rods in back Review of Systems Except as stated in HPI: all other systems reviewed are Neg Past Family Social History Past Medical History asthma mrsa right hand denies diabetes mellitus, hypertension, cad, liver problems, kidney problems, dvt, pe, cva, seizures, thyroid problems or cancers Past Surgical History Kyphosis repair age 18 y/o Reported Medications Reported Meds & Active Scripts Active No Active Prescriptions or Reported Medications Allergies: Coded Allergies: acetaminophen (Unverified Allergy, Severe, Hives, 02/26/17) ketorolac (Unverified Allergy, Severe, HIVES, 02/26/17) *MDRO Multi-Drug Resistant Organism (Verified Adverse Reaction, Unknown, MRSA, 02/26/17) 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 Ordered Medications Current Medications Sodium Chloride 1,000 ml @ 999 mls/hr BOLUS ONCE IV Last administered on 02/26 19:10; Start 02/26/17 at 18:45; Stop 02/26/17 at 19:45; Status DC Morphine Sulfate (Morphine Inj) 4 mg ONCE ONCE IV PUSH Last administered on 20:00; Start 02/26/17 at 19:30; Stop 02/26/17 at 19:31; Status DC Ondansetron HCl (Zofran Inj) 4 mg ONCE ONCE IV PUSH Last administered on 20:00; Start 02/26/17 at 19:30; Stop 02/26/17 at 19:31; Status DC Vancomycin HCl 1000 mg/Sodium Chloride 250 ml @ 250 mls/hr ONCE ONCE IV Last administered on 02/26/17 21:53; Start 02/26/17 at 19:45; Stop 02/26/17 at 20:44 ; Status DC Clindamycin Phosphate 600 mg/ Sodium Chloride 104 ml @ 208 mls/hr ONCE ONCE IV Last administered on 02/26/17 20:27; Start 02/26/17 at 19:45; Stop at 20:14; Status DC Iohexol (Omnipaque 350 Inj) 75 ml STK-MED ONCE IVCONTRAST Last administered on 02/26/17 17:08; Start 02/26/17 at 17:08; Stop 02/26/17 at 20:36; Status DC Sodium Chloride (NS Flush) 2 ml UNSCH PRN IV FLUSH FLUSH AFTER USING IV ACCESS ; Start 02/26/17 at 22:00 Sodium Chloride (NS Flush) 2 ml BID IV FLUSH ; Start 02/27/17 at 09:00 Naloxone HCl (Narcan Inj) 0.4 mg UNSCH PRN IV SEE LABEL COMMENTS; Start at 22:00 Clindamycin Phosphate 900 mg/ Sodium Chloride 106 ml @ 212 mls/hr Q6H IV Last administered on 02/27/17 02:22; Start 02/27/17 at 02:00 . Family History mother with diabetes brother with kidney stones Social History tobacco: 1 PPD alcohol: denies illicit drugs: heroin, denies cocaine or amphetamines . Physical Exam Vital Signs Vital Signs Date Time Temp Pulse Resp B/P (MAP) Pulse Ox O2 Delivery O2 Flow Rate FiO2 02/27/17 03:39 98.7 76 18 96/58 (71) 98 02/27/17 00:40 75 02/27/17 00:11 97.5 66 18 123/71 (88) 99 02/26/17 22:28 67 18 114/69 (84) 100 02/26/17 22:01 76 18 114/67 (83) 100 Room Air 02/26/17 21:04 73 18 109/63 (78) 98 Room Air 02/26/17 20:00 72 18 110/72 (85) 98 Room Air 02/26/17 19:05 78 18 115/64 (81) 99 Room Air 02/26/17 18:23 98.9 80 16 113/55 (74) 98 Room Air 02/26/17 17:14 98.9 98 16 112/78 (89) 98 Physical Exam GENERAL: This is an unkempt male patient, in no apparent distress. SKIN: Multiple sores on arms c/w appearance of disseminated MRSA. Cool and dry. HEAD: Atraumatic. Normocephalic. EYES: No scleral icterus. No injection or drainage. ENT: Nose without bleeding, purulent drainage. NECK: Trachea midline. No JVD or lymphadenopathy. CARDIOVASCULAR: Regular rate and rhythm without murmurs, gallops, or rubs. RESPIRATORY: Clear to auscultation. Breath sounds equal bilaterally. No wheezes , rales, or rhonchi. GASTROINTESTINAL: Abdomen soft, non-tender, nondistended. No guarding. MUSCULOSKELETAL: Extremities without clubbing, cyanosis. No calf tenderness. Right knee cellulitis noted with lateral raised lesion. NEUROLOGICAL: Awake and alert. Motor and sensory grossly within normal limits. Normal speech. . Laboratory Laboratory Tests Test 02/26/17 19:05 White Blood Count 10.6 Red Blood Count 4.86 Hemoglobin 14.1 Hematocrit 42.0 Mean Corpuscular Volume 86.5 Mean Corpuscular Hemoglobin 28.9 Mean Corpuscular Hemoglobin Concent 33.4 Red Cell Distribution Width 13.6 Platelet Count 307 Mean Platelet Volume 7.9 Neutrophils (%) (Auto) 62.0 Lymphocytes (%) (Auto) 25.3 Monocytes (%) (Auto) 11.2 Eosinophils (%) (Auto) 1.1 Basophils (%) (Auto) 0.4 Neutrophils # (Auto) 6.6 Lymphocytes # (Auto) 2.7 Monocytes # (Auto) 1.2 Eosinophils # (Auto) 0.1 Basophils # (Auto) 0.0 CBC Comment DIFF FINAL Differential Comment Prothrombin Time 12.0 Prothromb Time International Ratio 1.1 Blood Urea Nitrogen 11 Creatinine 0.92 Random Glucose 52 Total Protein 6.9 Albumin 3.0 Calcium Level 8.5 Alkaline Phosphatase 77 Aspartate Amino Transf (AST/SGOT) 73 Alanine Aminotransferase (ALT/SGPT) 86 Total Bilirubin 0.4 Sodium Level 142 Potassium Level 3.6 Chloride Level 105 Carbon Dioxide Level 31.2 Anion Gap 6 Estimat Glomerular Filtration Rate 97 Lactic Acid Level 1.6 Total Creatine Kinase 106 Date/Time Source Procedure Growth Status 02/26/17 19:10 Blood Peripheral Aerobic Blood Culture Pending Received 02/26/17 19:10 Blood Peripheral Anaerobic Blood Culture Pending Received Result Diagram: 02/26/17 1905 02/26/17 1905 Imaging Last Impressions Chest X-Ray 02/26/17 1831 Signed Impressions: Service Date/Time: February 18:59 - CONCLUSION: Subtle airspace opacity at the left lung base representing either atelectasis or mild air space consolidation. Magdiel Bajwa MD Lower Extremity CT 02/26/17 0000 Signed Impressions: Service Date/Time: February 20:32 - CONCLUSION: There is subcutaneous edema and skin thickening involving the anterolateral and anterior aspect of the right knee. The appearance is characteristic of a cellulitis. No abscess is identified. The lack of a joint effusion suggests against any involvement of the joint space. Magdiel Bajwa MD Knee X-Ray 02/26/17 0000 Signed Impressions: Service Date/Time: February 18:34 - CONCLUSION: No right knee abnormality is identified. Magdiel Bajwa MD . Marino VTE Risk Assessment Caprini VTE Risk Assessment: No/Low Risk (score <= 1) Caprini Risk Assessment Model Point Value = 1 Point Value = 2 Point Value = 3 Point Value = 5 Age 41-60 Minor surgery BMI > 25 kg/m2 Swollen legs Varicose veins or History of unexplained or recurrent spontaneous Oral contraceptives or hormone replacement Sepsis (< 1 month) Serious lung disease, including pneumonia (< 1 month) Abnormal pulmonary function Acute myocardial infarction Congestive heart failure (< 1 month) History of inflammatory bowel disease Medical patient at bed rest Age 61-74 Arthroscopic surgery Major open surgery (> 45 min) Laparoscopic surgery (> 45 min) Malignancy Confined to bed (> 72 hours) Immobilizing plaster cast Central venous access Age >= 75 History of VTE Family history of VTE Factor V Leiden Prothrombin [id number] Lupus anticoagulant Anticardiolipin antibodies Elevated serum homocysteine Heparin-induced thrombocytopenia Other congenital or acquired thrombophilia Stroke (< 1 month) Elective arthroplasty Hip, pelvis, or leg fracture Acute spinal cord injury (< 1 month) Prophylaxis Regimen Total Risk Factor Score Risk Level Prophylaxis Regimen 0-1 Low Early ambulation 2 Moderate Order ONE of the following: *Sequential Compression Device (SCD) *Heparin 5000 units SQ BID 3-4 Higher Order ONE of the following medications: *Heparin 5000 units SQ TID *Enoxaparin/Lovenox 40 mg SQ daily (WT < 150 kg, CrCl > 30 mL/min) *Enoxaparin/Lovenox 30 mg SQ daily (WT < 150 kg, CrCl > 10-29 mL/min) *Enoxaparin/Lovenox 30 mg SQ BID (WT < 150 kg, CrCl > 30 mL/min) AND/OR *Sequential Compression Device (SCD) 5 or more Highest Order ONE of the following medications: *Heparin 5000 units SQ TID (Preferred with Epidurals) *Enoxaparin/Lovenox 40 mg SQ daily (WT < 150 kg, CrCl > 30 mL/min) *Enoxaparin/Lovenox 30 mg SQ daily (WT < 150 kg, CrCl > 10-29 mL/min) *Enoxaparin/Lovenox 30 mg SQ BID (WT < 150 kg, CrCl > 30 mL/min) AND *Sequential Compression Device (SCD) Assessment and Plan Problem List: (1) Cellulitis of right knee ICD Code: L03.115 - Cellulitis of right lower limb Status: Acute (2) IV drug abuse ICD Code: F19.10 - Other psychoactive substance abuse, uncomplicated Status: Chronic Assessment and Plan Cellulitis of right knee - history of MRSA - consult infectious disease specialist - will change clindamycin to vancomycin with pharmacy consult for assistance with therapeutic monitoring and dosing tobacco abuse - counselled regarding cessation IVDA - counselled regarding cessation This note was transcribed by quintonibnaheed [Shantel Palma]. I, Dr. Elyssa Monte personally performed the history, physical exam, and medical decision making; and confirmed the accuracy of the information in the transcribed note. Authenticated by Dr. Elyssa Monte on 02/27/17 at 05:22. . Discussed Condition With ER physician and patient . Shantel Palma Feb 27, 2017 05:22 Elyssa Monte MD Mar 06, 2017 08:02
[2017-02-27 06:17] LABS: AUTOMATED NEUTROPHIL # 4.6 TH/MM3 (1.8-7.7); BASOPHIL % 0.4 % (0.0-2.0); EOSINOPHIL # 0.1 TH/MM3 (0-0.4); EOSINOPHIL % 1.2 % (0.0-4.0); HEMO FLAGS DIFF FINAL; LYMPH % 25.9 % (9.0-44.0); LYMPHOCYTE # 1.9 TH/MM3 (1.0-4.8); MEAN CELL VOLUME 87.7 FL (80.0-100.0); MEAN CORPUSCULAR HEMOGLOBIN 28.8 PG (27.0-34.0); MEAN CORPUSCULAR HGB CONC 32.9 % (32.0-36.0); MONO % 11.4 % (0.0-8.0); NEUT % 61.1 % (16.0-70.0); PLATELET COUNT 268 TH/MM3 (150-450); RED BLOOD COUNT 4.68 MIL/MM3 (4.50-5.90); RED CELL DISTRIBUTION WIDTH 14.2 % (11.6-17.2); WHITE BLOOD COUNT 7.5 TH/MM3 (4.0-11.0)
[2017-02-27 06:31] LABS: BICARBONATE 28.4 MEQ/L (21.0-32.0); POTASSIUM 3.9 MEQ/L (3.5-5.1)
[2017-02-27] MEDS ORDERED: Vancomycin Consult Pharmacy 1 EA OTHER SCH (06:45)
[2017-02-27] MEDS: SODIUM CHLORIDE 0.9% FLUSH 10 ML FLUSH IV FLUSH SCH ×2 (07:58→21:15)
[2017-02-27] MEDS ORDERED: VANCOMYCIN 1,500 MG/NS 500 ML IV ONE ×2 (09:00)
[2017-02-27] MEDS: VANCOMYCIN INJ 1,250 MG in SODIUM CHLOR 0.9% 250 ML INJ 250 ML IV SCH ×2 (09:55→19:35)
[2017-02-27] MEDS ORDERED: traMADol HCL 50 MG TAB PO PRN (15:45)
--- NOTE | 2017-02-27 15:47 | HHI.PR ---
Subjective Remarks Follow-up for right lower extremity cellulitis. The patient complains of pain around his night knee from his infection. He states is painful to bend his knee or bear weight on his leg. He hasn't tried walking on it here. He states it does not feel any better than yesterday. He is unsure if it appears any different from yesterday. He denies any fevers or chills. He denies any chest pain or shortness of breath. He denies any injury to the area. He injects in his right arm, denies ever injecting into his legs. He is asking for something for pain. Objective Vitals Vital Signs Date Time Temp Pulse Resp B/P (MAP) Pulse Ox O2 Delivery O2 Flow Rate FiO2 02/27/17 12:52 65 02/27/17 11:37 97.7 68 16 140/72 (94) 98 02/27/17 09:05 98.0 71 18 131/64 (86) 95 02/27/17 07:41 67 02/27/17 03:39 98.7 76 18 96/58 (71) 98 02/27/17 00:40 75 02/27/17 00:11 97.5 66 18 123/71 (88) 99 02/26/17 22:28 67 18 114/69 (84) 100 02/26/17 22:01 76 18 114/67 (83) 100 Room Air 02/26/17 21:04 73 18 109/63 (78) 98 Room Air 02/26/17 20:00 72 18 110/72 (85) 98 Room Air 02/26/17 19:05 78 18 115/64 (81) 99 Room Air 02/26/17 18:23 98.9 80 16 113/55 (74) 98 Room Air 02/26/17 17:14 98.9 98 16 112/78 (89) 98 I/O 02/26/17 02/26/17 02/26/17 02/27/17 02/27/17 02/27/17 07:00 15:00 23:00 07:00 15:00 23:00 Intake Total 1104 ml 720 ml 350 ml Balance 1104 ml 720 ml 350 ml Intake Oral 720 ml IV Total 1104 ml 350 ml # Voids 1 5 Result Diagram: 02/27/17 0540 02/27/17 0540 Imaging Last Impressions Chest X-Ray 02/26/17 1831 Signed Impressions: Service Date/Time: February 18:59 - CONCLUSION: Subtle airspace opacity at the left lung base representing either atelectasis or mild air space consolidation. Magdiel Bajwa MD Lower Extremity CT 02/26/17 0000 Signed Impressions: Service Date/Time: February 20:32 - CONCLUSION: There is subcutaneous edema and skin thickening involving the anterolateral and anterior aspect of the right knee. The appearance is characteristic of a cellulitis. No abscess is identified. The lack of a joint effusion suggests against any involvement of the joint space. Magdiel Bajwa MD Knee X-Ray 02/26/17 0000 Signed Impressions: Service Date/Time: February 18:34 - CONCLUSION: No right knee abnormality is identified. Magdiel Bajwa MD Objective Remarks GENERAL: Well-developed well-nourished. Unkempt. In no acute distress. SKIN: Warm and dry. Injection sites right appreciated a clean. HEENT: Normocephalic. Pupils equal and round. Mucous membranes pink and moist. CARDIOVASCULAR: Regular rate and rhythm. No murmur appreciated. RESPIRATORY: No accessory muscle use. Clear to auscultation. Breath sounds equal bilaterally. GASTROINTESTINAL: Abdomen soft, non-tender, nondistended. Bowel sounds x4. MUSCULOSKELETAL: Hard ~2cm erythematous nodule in the lateral aspect of the right knee with minimal surrounding erythema and edema.. No clubbing or cyanosis. NEUROLOGICAL: Awake and alert. No focal neurological deficits. Moves upper and lower extremities spontaneously. Normal speech. PSYCHIATRIC: Appropriate mood and affect; insight and judgment normal. A/P Problem List: (1) Cellulitis of right knee ICD Code: L03.115 - Cellulitis of right lower limb Status: Acute (2) IV drug abuse ICD Code: F19.10 - Other psychoactive substance abuse, uncomplicated Status: Chronic Assessment and Plan 31-year-old male with a past medical history of MRSA and IV drug use and presented for right knee infection Right knee cellulitis: Reviewed: No extremity CT showed subcutaneous edema and skin thickening involving the anterolateral and anterior aspect of the right knee consistent with cellulitis; no abscess or joint effusion identified. Afebrile with no leukocytosis. Previous wound cultures grew MRSA and group A strep. -On IV vancomycin and clindamycin -ID consulted -Tramadol as needed for pain Tobacco and IV drug abuse: -Counseled regarding cessation DVT prophylaxis: Lovenox Discharge Planning Monitor for clinical improvement. Follow up ID recommendations. Maulik Flaherty Feb 27, 2017 15:47
[2017-02-27] MEDS ORDERED: IBUPROFEN 400 MG TAB PO PRN (16:30)
--- NOTE | 2017-02-27 16:52 | PD.ID.CON ---
History of Present Illness Service ID Consult Requested By Shantel PALENCIA Reason for Consult R knee cellulitis Primary Care Physician No Primary Care Physician Diagnoses: History of Present Illness 31 yo male with chronic back pain and back surgeries x 3 , h/o IVDU presents with several day of worsening R knee pain, worsenwwith movement s and inabilityu to weight brear Festus fever, chills No abx prior to admission On presentation medical center afenbrile, with normal WBC blood clx negative at [address] R knee showing here subcutaneous edema and skin thickening involving the anterolateral and anterior aspect of the right knee characteristic of a cellulitis, no abscess and no joint effusion Blood clx are negative Review of Systems Except as stated in HPI: all other systems reviewed are Neg Past Family Social History Allergies: Coded Allergies: acetaminophen (Unverified Allergy, Severe, Hives, 02/26/17) ketorolac (Unverified Allergy, Severe, HIVES, 02/26/17) *MDRO Multi-Drug Resistant Organism (Verified Adverse Reaction, Unknown, MRSA, 02/26/17) MRSA (foot) - 12/27/16 Past Medical History asthma mrsa right hand denies diabetes mellitus, hypertension, cad, liver problems, kidney problems, dvt, pe, cva, seizures, thyroid problems or cancers Past Surgical History Kyphosis repair age 18 y/o Active Ordered Medications Medications where reviewed in EMR Antibiotics Include: vanco clinda Family History mother with diabetes brother with kidney stones Social History tobacco: 1 PPD alcohol: denies illicit drugs: heroin, denies cocaine or amphetamines Physical Exam Vital Signs Vital Signs Date Time Temp Pulse Resp B/P (MAP) Pulse Ox O2 Delivery O2 Flow Rate FiO2 02/27/17 16:08 98.5 64 16 118/71 (87) 98 02/27/17 12:52 65 02/27/17 11:37 97.7 68 16 140/72 (94) 98 02/27/17 09:05 98.0 71 18 131/64 (86) 95 02/27/17 07:41 67 02/27/17 03:39 98.7 76 18 96/58 (71) 98 02/27/17 00:40 75 02/27/17 00:11 97.5 66 18 123/71 (88) 99 02/26/17 22:28 67 18 114/69 (84) 100 02/26/17 22:01 76 18 114/67 (83) 100 Room Air 02/26/17 21:04 73 18 109/63 (78) 98 Room Air 02/26/17 20:00 72 18 110/72 (85) 98 Room Air 02/26/17 19:05 78 18 115/64 (81) 99 Room Air 02/26/17 18:23 98.9 80 16 113/55 (74) 98 Room Air 02/26/17 17:14 98.9 98 16 112/78 (89) 98 Physical Exam CONSTITUTIONAL/GENERAL: This is an adequately nourished patient, in no apparent distress. TUBES/LINES/DRAINS: SKIN: No jaundice, rashes, or lesions. Skin temperature appropriate. Not diaphoretic. HEAD: Atraumatic. Normocephalic. EYES: Pupils equal and round and reactive. Extraocular motions intact. No scleral icterus. No injection or drainage. Fundi not examined. ENT: Hearing grossly normal. Nose without bleeding or purulent drainage. Throat without visible erythema, exudates, masses, or lesions. NECK: Trachea midline. Supple, nontender. CARDIOVASCULAR: Regular rate and rhythm without murmurs, gallops, or rubs. No JVD. Peripheral pulses symmetric. RESPIRATORY/CHEST: Symmetric, unlabored respirations. Clear to auscultation. Breath sounds equal bilaterally. No wheezes, rales, or rhonchi. GASTROINTESTINAL: Abdomen soft, non-tender, nondistended. No hepato-splenomegaly , or palpable masses. No guarding. Bowel sounds present. MUSCULOSKELETAL: Extremities without clubbing, cyanosis, or edema. No joint tenderness or effusion noted. No calf tenderness. No mottling or clubbing. STTUS LOCALIS: milsdly edematous R knee with loss of landmarks, very tender to palpation Eryematous lesion on the lateralaspect about 2-3 cm Unable to perform ANY passive or acrive ROM 2/2 excruciating pain No ascending cellulitis or lymphangitits NEUROLOGICAL: Awake and alert. Motor and sensory grossly within normal limits. Follows commands. Cognitively sharp. Moves all extremities. PSYCHIATRIC: No obvious anxiety/depression. no apparent hallucinations or other psychotic thought process. Laboratory Laboratory Tests Test 02/26/17 19:05 02/27/17 05:40 White Blood Count 10.6 7.5 Red Blood Count 4.86 4.68 Hemoglobin 14.1 13.5 Hematocrit 42.0 41.0 Mean Corpuscular Volume 86.5 87.7 Mean Corpuscular Hemoglobin 28.9 28.8 Mean Corpuscular Hemoglobin Concent 33.4 32.9 Red Cell Distribution Width 13.6 14.2 Platelet Count 307 268 Mean Platelet Volume 7.9 7.8 Neutrophils (%) (Auto) 62.0 61.1 Lymphocytes (%) (Auto) 25.3 25.9 Monocytes (%) (Auto) 11.2 11.4 Eosinophils (%) (Auto) 1.1 1.2 Basophils (%) (Auto) 0.4 0.4 Neutrophils # (Auto) 6.6 4.6 Lymphocytes # (Auto) 2.7 1.9 Monocytes # (Auto) 1.2 0.9 Eosinophils # (Auto) 0.1 0.1 Basophils # (Auto) 0.0 0.0 CBC Comment DIFF FINAL DIFF FINAL Differential Comment Prothrombin Time 12.0 Prothromb Time International Ratio 1.1 Blood Urea Nitrogen 11 8 Creatinine 0.92 0.77 Random Glucose 52 95 Total Protein 6.9 Albumin 3.0 Calcium Level 8.5 8.2 Alkaline Phosphatase 77 Aspartate Amino Transf (AST/SGOT) 73 Alanine Aminotransferase (ALT/SGPT) 86 Total Bilirubin 0.4 Sodium Level 142 143 Potassium Level 3.6 3.9 Chloride Level 105 109 Carbon Dioxide Level 31.2 28.4 Anion Gap 6 6 Estimat Glomerular Filtration Rate 97 119 Lactic Acid Level 1.6 Total Creatine Kinase 106 Date/Time Source Procedure Growth Status 02/26/17 19:10 Blood Peripheral Aerobic Blood Culture - Preliminary NO GROWTH IN 1 DAY Resulted 02/26/17 19:10 Blood Peripheral Anaerobic Blood Culture - Preliminary NO GROWTH IN 1 DAY Resulted Result Diagram: 02/27/17 0540 02/27/17 0540 Imaging Last Impressions Chest X-Ray 02/26/17 1831 Signed Impressions: Service Date/Time: February 18:59 - CONCLUSION: Subtle airspace opacity at the left lung base representing either atelectasis or mild air space consolidation. Magdiel Bajwa MD Lower Extremity CT 02/26/17 0000 Signed Impressions: Service Date/Time: February 20:32 - CONCLUSION: There is subcutaneous edema and skin thickening involving the anterolateral and anterior aspect of the right knee. The appearance is characteristic of a cellulitis. No abscess is identified. The lack of a joint effusion suggests against any involvement of the joint space. Magdiel Bajwa MD Knee X-Ray 02/26/17 0000 Signed Impressions: Service Date/Time: February 18:34 - CONCLUSION: No right knee abnormality is identified. Magdiel Bajwa MD Assessment and Plan Assessment and Plan A: infection of R knee though he has no effusion, but the considerable pain with movements inth eabscesce of significant skin findings is concerning Rec: MRI R knee cont vanco chk ESR Pauline Bautista MD Feb 27, 2017 16:52
[2017-02-27] MEDS: ENOXAPARIN SODIUM 40 MG/0.4 ML SYRINGE SQ SCH (17:12)
--- NOTE | 2017-02-27 19:36 | RADRPT ---
EXAM DATE/TIME: 02/27/2017 18:32 [facility] COMPARISON: CT KNEE RIGHT W CONTRAST, February 26, 2017, 20:32. KNEE RIGHT COMPLETE (4VWS), February 26, 2017, 18:34 . INDICATIONS : Cellulitis. CONTRAST: 16 cc Omniscan (gadodiamide) IV MEDICAL HISTORY : IVDA SURGICAL HISTORY : Fusion, lumbar. ENCOUNTER: Initial ACUITY: 1 day PAIN SCORE: 5/10 LOCATION: Right Knee TECHNIQUE: Multiplanar multisequence MRI examination of the knee was performed with and without contrast. FINDINGS: Broad area of subcutaneous edema seen anterolaterally of the right knee. Within this is a 10 x 15 by 11 mm mildly organized rim-enhancing fluid collection compatible with early abscess formation. The escalante perficial margin of the abscess is just a few millimeters beneath the skin. Within the joint, very small, simple appearing effusion noted. Menisci, cruciate ligaments and collat eral ligaments are all intact. No evidence of osteomyelitis. CONCLUSION: 1. Broad area of cellulitis anterolaterally of the right knee region. A small superficial abscess is developing within this. 2. Small, nonspecific but presumably reactive joint effusion. No other intra-articular abnormalities are demonstrated. Magdiel Krishna MD on February 27, 2017 at 19:29 Board Certified Radiologist. This report was verified electronically.
[2017-02-28] VITALS (7 sets, daily range): BP systolic 117–135; BP diastolic 61–80; PULSE 50–84; RESP 17–20; TEMP 97.9–98.7; O2SAT 96–100
[2017-02-28] MEDS: CLINDAMYCIN INJ 900 MG in SODIUM CHLORIDE 0.9% INJ 100 ML IV SCH ×4 (01:38→21:23)
[2017-02-28] MEDS: VANCOMYCIN INJ 1,250 MG in SODIUM CHLOR 0.9% 250 ML INJ 250 ML IV SCH ×2 (02:47→11:52)
[2017-02-28 06:47] LABS: AUTOMATED NEUTROPHIL # 4.4 TH/MM3 (1.8-7.7); BASOPHIL % 0.4 % (0.0-2.0); EOSINOPHIL # 0.1 TH/MM3 (0-0.4); EOSINOPHIL % 1.2 % (0.0-4.0); HEMATOCRIT 40.4 % (39.0-51.0); HEMO FLAGS DIFF FINAL; LYMPH % 23.3 % (9.0-44.0); LYMPHOCYTE # 1.6 TH/MM3 (1.0-4.8); MEAN CELL VOLUME 87.2 FL (80.0-100.0); MEAN CORPUSCULAR HEMOGLOBIN 29.3 PG (27.0-34.0); MEAN CORPUSCULAR HGB CONC 33.6 % (32.0-36.0); MONO % 11.2 % (0.0-8.0); NEUT % 63.9 % (16.0-70.0); PLATELET COUNT 244 TH/MM3 (150-450); RED BLOOD COUNT 4.63 MIL/MM3 (4.50-5.90); RED CELL DISTRIBUTION WIDTH 13.6 % (11.6-17.2); WHITE BLOOD COUNT 6.9 TH/MM3 (4.0-11.0)
[2017-02-28 07:17] LABS: ALT (GPT) 148 U/L (12-78); ANION GAP 7 MEQ/L (5-15); AST (GOT) 129 U/L (15-37); BICARBONATE 28.8 MEQ/L (21.0-32.0); BLOOD UREA NITROGEN 7 MG/DL (7-18); CHLORIDE 106 MEQ/L (98-107); GLOMERULAR FILTRATION RATE 123 ML/MIN (>89); POTASSIUM 3.9 MEQ/L (3.5-5.1); SODIUM (NA) 142 MEQ/L (136-145)
[2017-02-28 07:20] LABS: ALKALINE PHOSPHATASE 63 U/L (45-117); TOTAL BILIRUBIN ADULT 0.3 MG/DL (0.2-1.0)
[2017-02-28] MEDS ORDERED: IBUPROFEN 400 MG TAB PO PRN (08:15)
[2017-02-28] MEDS: SODIUM CHLORIDE 0.9% FLUSH 10 ML FLUSH IV FLUSH SCH ×2 (08:23→21:23)
[2017-02-28] MEDS: IBUPROFEN 400 MG TAB PO SCH ×3 (09:01→21:00)
--- NOTE | 2017-02-28 09:16 | HHI.PR ---
Subjective Remarks Follow up for RLE cellulitis. The patient reports continued uncontrolled constant 10/10 pain at the right lateral knee, requesting pain medications. Discussed will only give oxycodone while in the hospital and will not be given prescription at discharge; patient verbalized understanding in presence of the RN. He has continued erythema at the right lateral knee and reports decreased range of motion. Denies fevers but does report occasional chills. Denies any other medical complaints including no chest pain, shortness of breath, abdominal pain, nausea/vomiting, or diarrhea. Objective Vitals Vital Signs Date Time Temp Pulse Resp B/P (MAP) Pulse Ox O2 Delivery O2 Flow Rate FiO2 02/28/17 08:54 98.2 68 20 125/73 (90) 96 02/28/17 03:28 97.9 50 17 117/65 (82) 97 02/28/17 00:11 98.1 63 17 120/70 (87) 96 02/27/17 19:45 98.4 91 17 127/72 (90) 98 02/27/17 16:08 98.5 64 16 118/71 (87) 98 02/27/17 12:52 65 02/27/17 11:37 97.7 68 16 140/72 (94) 98 I/O 02/27/17 02/27/17 02/27/17 02/28/17 02/28/17 02/28/17 07:00 15:00 23:00 07:00 15:00 23:00 Intake Total 720 ml 350 ml 1550 ml 830 ml Balance 720 ml 350 ml 1550 ml 830 ml Intake Oral 720 ml 1200 ml 480 ml IV Total 350 ml 350 ml 350 ml # Voids 1 5 2 1 Result Diagram: 02/28/17 0611 02/28/17 0611 Imaging Last Impressions Knee MRI 02/27/17 0000 Signed Impressions: Service Date/Time: Monday, February 27, 2017 18:32 - CONCLUSION: 1. Broad area of cellulitis anterolaterally of the right knee region. A small superficial abscess is developing within this. 2. Small, nonspecific but presumably reactive joint effusion. No other intra-articular abnormalities are demonstrated. Magdiel Krishna MD Chest X-Ray 02/26/17 1831 Signed Impressions: Service Date/Time: February 18:59 - CONCLUSION: Subtle airspace opacity at the left lung base representing either atelectasis or mild air space consolidation. Magdiel Bajwa MD Lower Extremity CT 02/26/17 0000 Signed Impressions: Service Date/Time: February 20:32 - CONCLUSION: There is subcutaneous edema and skin thickening involving the anterolateral and anterior aspect of the right knee. The appearance is characteristic of a cellulitis. No abscess is identified. The lack of a joint effusion suggests against any involvement of the joint space. Magdiel Bajwa MD Knee X-Ray 02/26/17 0000 Signed Impressions: Service Date/Time: February 18:34 - CONCLUSION: No right knee abnormality is identified. Magdile Bajwa MD Objective Remarks GENERAL: Well-nourished, well-developed young male patient in [facility]. SKIN: Warm and dry. Right lateral knee with 2cm hard nodule with surrounding erythema/edema, significantly tender to palpation HEENT: Normocephalic. Atraumatic.Pupils equal and round. Mucous membranes pink and moist. NECK: Supple. Trachea midline. CARDIOVASCULAR: Regular rate and rhythm. S1, S2 noted. No murmur appreciated. RESPIRATORY: No accessory muscle use. Clear to auscultation. Breath sounds equal bilaterally. GASTROINTESTINAL: Abdomen soft, non-tender, nondistended. Normoactive bowel sounds x4. MUSCULOSKELETAL: No obvious deformities. Extremities without clubbing, cyanosis , or edema. NEUROLOGICAL: Awake and alert. No obvious cranial nerve deficits. Motor grossly within normal limits. Normal speech. PSYCHIATRIC: Appropriate mood and affect; insight and judgment normal. Medications and IVs Current Medications Medications (Trade) Dose Ordered Sig/Valerie Route Start Time Stop Time Status Last Admin (NS Flush) 2 ml UNSCH PRN IV FLUSH 02/26/17 22:00 (NS Flush) 2 ml BID IV FLUSH 02/27/17 09:00 02/28/17 08:23 (Narcan Inj) 0.4 mg UNSCH PRN IV 02/26/17 22:00 Clindamycin Phosphate 900 mg/ Sodium Chloride 106 ml @ 212 mls/hr Q6H IV 02/27/17 02:00 02/28/17 08:22 Pharmacy Profile Note 0 ml @ 0 mls/hr UNSCH OTHER 02/27/17 06:45 Vancomycin HCl 1250 mg/Sodium Chloride 262.5 ml @ 250 mls/hr Q8H IV 02/27/17 11:00 02/28/17 02:47 Miscellaneous Information SPECIFIC LAB TO BE AN... ONCE ONCE .XX 02/28/17 10:45 02/28/17 10:46 (Lovenox Inj) 40 mg Q24H SQ 02/27/17 17:00 02/27/17 17:12 (Motrin) 600 mg Q6H PO 02/28/17 09:00 (Roxicodone) 5 mg Q6H PRN PO 02/28/17 08:45 (Roxicodone) 10 mg Q6H PRN PO 02/28/17 08:45 A/P Problem List: (1) Cellulitis of right knee ICD Code: L03.115 - Cellulitis of right lower limb Status: Acute (2) IV drug abuse ICD Code: F19.10 - Other psychoactive substance abuse, uncomplicated Status: Chronic Assessment and Plan 31-year-old male with a past medical history of MRSA and IV drug use and presented for right knee infection Right knee cellulitis: Afebrile with no leukocytosis. Previous wound cultures grew MRSA and group A strep. RLE CT images reviewed, showed subcutaneous edema and skin thickening involving the anterolateral and anterior aspect of the right knee consistent with cellulitis; no abscess or joint effusion identified. Right knee MRI shows broad area of cellulitis anterolaterally of the right knee region; small superficial abscess developing; small nonspecific presumably reactive joint effusion. -Continue on IV vancomycin and clindamycin -ID consulted, appreciate assistance -Schedule ibuprofen for inflammation, Oxycodone prn pain Tobacco and IV drug abuse: -Counseled regarding cessation DVT prophylaxis: Lovenox Discharge Planning Discharge pending further clinical improvement and clearance from ID. Taylor Krishna PA-C Feb 28, 2017 9:16 am
[2017-02-28] MEDS ORDERED: PHARMACY ORDERED LAB ONE (10:45)
[2017-02-28] MEDS: ENOXAPARIN SODIUM 40 MG/0.4 ML SYRINGE SQ SCH (17:52)
[2017-02-28] MEDS: VANCOMYCIN 1,000 MG/NS 250 ML IV SCH ×2 (23:32)
[2017-03-01] MEDS: IBUPROFEN 400 MG TAB PO SCH ×4 (03:00→20:35)
[2017-03-01] MEDS: CLINDAMYCIN INJ 900 MG in SODIUM CHLORIDE 0.9% INJ 100 ML IV SCH ×4 (03:20→20:36)
[2017-03-01 03:48] VITALS: BP 128/66; PULSE 55; RESP 17; TEMP 98.3; O2SAT 96
[2017-03-01] MEDS: VANCOMYCIN 1,000 MG/NS 250 ML IV SCH ×4 (04:18→12:52)
[2017-03-01 07:48] VITALS: BP 114/58; PULSE 72; RESP 21; TEMP 98; O2SAT 96
--- NOTE | 2017-03-01 08:00 | HHI.PR ---
Subjective Remarks Follow up for RLE cellulitis. The patient reports minimal improvement of the erythema and edema at the right lateral knee overnight. Denies fevers/chills. He reports continued pain at the site of infection. He states even just the blanket hitting the area hurts. No drainage. He denies any other medical complaints at this time. Objective Vitals Vital Signs Date Time Temp Pulse Resp B/P (MAP) Pulse Ox O2 Delivery O2 Flow Rate FiO2 03/01/17 07:48 98.0 72 21 114/58 (76) 96 03/01/17 03:48 98.3 55 17 128/66 (86) 96 02/28/17 23:39 98.7 58 18 132/63 (86) 96 02/28/17 21:05 98.1 84 18 135/61 (85) 100 02/28/17 16:08 98.2 60 18 135/67 (89) 96 02/28/17 12:05 98.2 60 18 122/80 (94) 96 02/28/17 08:54 98.2 68 20 125/73 (90) 96 I/O 02/28/17 02/28/17 02/28/17 03/01/17 03/01/17 03/01/17 07:00 15:00 23:00 07:00 15:00 23:00 Intake Total 830 ml 1419 ml Output Total 2625 ml Balance 830 ml -1206 ml Intake Oral 480 ml 1419 ml IV Total 350 ml Output Urine Total 2625 ml # Voids 1 # Bowel Movements 1 Result Diagram: 02/28/17 0611 02/28/17 0611 Imaging Last Impressions Knee MRI 02/27/17 0000 Signed Impressions: Service Date/Time: Monday, February 27, 2017 18:32 - CONCLUSION: 1. Broad area of cellulitis anterolaterally of the right knee region. A small superficial abscess is developing within this. 2. Small, nonspecific but presumably reactive joint effusion. No other intra-articular abnormalities are demonstrated. Magdiel Krishna MD Chest X-Ray 02/26/17 1831 Signed Impressions: Service Date/Time: February 18:59 - CONCLUSION: Subtle airspace opacity at the left lung base representing either atelectasis or mild air space consolidation. Magdiel Bajwa MD Lower Extremity CT 02/26/17 0000 Signed Impressions: Service Date/Time: February 20:32 - CONCLUSION: There is subcutaneous edema and skin thickening involving the anterolateral and anterior aspect of the right knee. The appearance is characteristic of a cellulitis. No abscess is identified. The lack of a joint effusion suggests against any involvement of the joint space. Magdiel Bajwa MD Knee X-Ray 02/26/17 0000 Signed Impressions: Service Date/Time: February 18:34 - CONCLUSION: No right knee abnormality is identified. Magdiel Bajwa MD Objective Remarks GENERAL: Well-nourished, well-developed young male patient in [facility]. SKIN: Warm and dry. Right lateral knee with 2cm hard nodule with surrounding erythema/edema, significantly tender to palpation HEENT: Normocephalic. Atraumatic.Pupils equal and round. Mucous membranes pink and moist. CARDIOVASCULAR: Regular rate and rhythm. S1, S2 noted. No murmur appreciated. RESPIRATORY: No accessory muscle use. Clear to auscultation. Breath sounds equal bilaterally. GASTROINTESTINAL: Abdomen soft, non-tender, nondistended. Normoactive bowel sounds x4. MUSCULOSKELETAL: No obvious deformities. Extremities without clubbing, cyanosis , or edema. NEUROLOGICAL: Awake and alert. No obvious cranial nerve deficits. Motor grossly within normal limits. Normal speech. PSYCHIATRIC: Appropriate mood and affect; insight and judgment normal. Medications and IVs Current Medications Medications (Trade) Dose Ordered Sig/Valerie Route Start Time Stop Time Status Last Admin (NS Flush) 2 ml UNSCH PRN IV FLUSH 02/26/17 22:00 (NS Flush) 2 ml BID IV FLUSH 02/27/17 09:00 02/28/17 21:23 (Narcan Inj) 0.4 mg UNSCH PRN IV 02/26/17 22:00 Clindamycin Phosphate 900 mg/ Sodium Chloride 106 ml @ 212 mls/hr Q6H IV 02/27/17 02:00 03/01/17 03:20 Pharmacy Profile Note 0 ml @ 0 mls/hr UNSCH OTHER 02/27/17 06:45 (Lovenox Inj) 40 mg Q24H SQ 02/27/17 17:00 02/28/17 17:52 (Motrin) 600 mg Q6H PO 02/28/17 09:00 (Roxicodone) 5 mg Q6H PRN PO 02/28/17 08:45 (Roxicodone) 10 mg Q6H PRN PO 02/28/17 08:45 03/01/17 03:24 Vancomycin HCl 1000 mg/Sodium Chloride 250 ml @ 250 mls/hr Q8H IV 02/28/17 20:00 03/01/17 04:18 Miscellaneous Information SPECIFIC LAB TO BE AN... ONCE ONCE .XX 03/01/17 11:45 03/01/17 11:46 A/P Problem List: (1) Cellulitis of right knee ICD Code: L03.115 - Cellulitis of right lower limb Status: Acute (2) IV drug abuse ICD Code: F19.10 - Other psychoactive substance abuse, uncomplicated Status: Chronic Assessment and Plan 31-year-old male with a past medical history of MRSA and IV drug use and presented for right knee infection Right knee cellulitis: Afebrile, no leukocytosis. Previous wound cultures grew MRSA and group A strep. RLE CT images reviewed, showed subcutaneous edema and skin thickening involving the anterolateral and anterior aspect of the right knee consistent with cellulitis; no abscess or joint effusion identified. Right knee MRI shows broad area of cellulitis anterolaterally of the right knee region; small superficial abscess developing; small nonspecific presumably reactive joint effusion. -Continue on IV vancomycin and clindamycin -ID consulted, appreciate assistance -Schedule ibuprofen for inflammation, Oxycodone prn pain -apply warm compresses Tobacco and IV drug abuse: chronic -Counseled regarding cessation DVT prophylaxis: Lovenox Discharge Planning Discharge pending further clinical improvement and clearance from FE. Taylor Krishna PA-C Mar 01, 2017 8:00 am
[2017-03-01] MEDS: SODIUM CHLORIDE 0.9% FLUSH 10 ML FLUSH IV FLUSH SCH ×2 (09:09→20:36)
[2017-03-01] MEDS ORDERED: PHARMACY ORDERED LAB ONE (11:45)
[2017-03-01 11:53] VITALS: BP 129/69; PULSE 61; RESP 18; TEMP 98.1; O2SAT 98
[2017-03-01] MEDS: ENOXAPARIN SODIUM 40 MG/0.4 ML SYRINGE SQ SCH (16:21)
[2017-03-01 16:50] VITALS: BP 134/71; PULSE 73; RESP 15; TEMP 98.3; O2SAT 99
[2017-03-01 19:19] VITALS: BP 121/63; PULSE 72; RESP 20; TEMP 98.5; O2SAT 100
[2017-03-02 00:33] VITALS: BP 120/62; PULSE 70; RESP 18; TEMP 98.5; O2SAT 95
[2017-03-02] MEDS: VANCOMYCIN 1,000 MG/NS 250 ML IV SCH ×4 (00:52→11:49)
[2017-03-02] MEDS: IBUPROFEN 400 MG TAB PO SCH ×4 (02:07→21:00)
[2017-03-02] MEDS: CLINDAMYCIN INJ 900 MG in SODIUM CHLORIDE 0.9% INJ 100 ML IV SCH ×4 (02:13→20:00)
[2017-03-02 03:05] VITALS: BP 114/67; PULSE 62; RESP 18; TEMP 97.9; O2SAT 95
[2017-03-02] MEDS: SODIUM CHLORIDE 0.9% FLUSH 10 ML FLUSH IV FLUSH SCH ×2 (07:43→21:00)
[2017-03-02 07:52] VITALS: BP 115/75; PULSE 66; RESP 18; TEMP 97.8; O2SAT 98
--- NOTE | 2017-03-02 09:53 | HHI.PR ---
Subjective Remarks Patient seen in follow up for Right knee cellulitis/abscess. Patient complained of more pain overnight in the area of the abscess. Surgery was consulted regarding the abscess. This morning he reports the size is unchanged. He reports a burning pain localized to the anterior lateral portion of the knee. He denies pain in the knee joint. Objective Vitals Vital Signs Date Time Temp Pulse Resp B/P (MAP) Pulse Ox O2 Delivery O2 Flow Rate FiO2 03/02/17 07:52 97.8 66 18 115/75 (88) 98 03/02/17 03:05 97.9 62 18 114/67 (83) 95 03/02/17 00:33 98.5 70 18 120/62 (81) 95 03/01/17 19:19 98.5 72 20 121/63 (82) 100 03/01/17 16:50 98.3 73 15 134/71 (92) 99 03/01/17 11:53 98.1 61 18 129/69 (89) 98 I/O 03/01/17 03/01/17 03/01/17 03/02/17 03/02/17 03/02/17 06:59 14:59 22:59 06:59 14:59 22:59 Intake Total 946 ml Balance 946 ml Intake Oral 946 ml # Voids 5 # Bowel Movements 1 Result Diagram: 02/28/17 0611 02/28/17 0611 Imaging Last Impressions Knee MRI 02/27/17 0000 Signed Impressions: Service Date/Time: Monday, February 27, 2017 18:32 - CONCLUSION: 1. Broad area of cellulitis anterolaterally of the right knee region. A small superficial abscess is developing within this. 2. Small, nonspecific but presumably reactive joint effusion. No other intra-articular abnormalities are demonstrated. Magdiel Krishna MD Chest X-Ray 02/26/17 1831 Signed Impressions: Service Date/Time: February 18:59 - CONCLUSION: Subtle airspace opacity at the left lung base representing either atelectasis or mild air space consolidation. Magdiel Bajwa MD Lower Extremity CT 02/26/17 0000 Signed Impressions: Service Date/Time: February 20:32 - CONCLUSION: There is subcutaneous edema and skin thickening involving the anterolateral and anterior aspect of the right knee. The appearance is characteristic of a cellulitis. No abscess is identified. The lack of a joint effusion suggests against any involvement of the joint space. Magdiel Bajwa MD Knee X-Ray 02/26/17 0000 Signed Impressions: Service Date/Time: February 18:34 - CONCLUSION: No right knee abnormality is identified. Magdiel Bajwa MD Objective Remarks GENERAL: This is a well-nourished, well-developed patient, in no apparent distress. SKIN: Right knee anterior laterally, there is a quarter size area of fluctuant with crust in the center. Markedly tender to palpation. CARDIOVASCULAR: Normal rate and regular rhythm without murmurs, gallops, or rubs. RESPIRATORY: Good respiratory efforts. Breath sounds equal and clear to auscultation bilaterally. GASTROINTESTINAL: Abdomen soft, non-tender, non-distended. Normal active bowel sounds MUSCULOSKELETAL: Patient reports pain on the anterior lateral side of the right knee with movement. NEURO: Alert & Oriented x4 to person, place, time, situation. Moves all ext x4 PSYCH: Appropriate mood and affect. A/P Problem List: (1) Cellulitis of right knee ICD Code: L03.115 - Cellulitis of right lower limb Status: Acute (2) IV drug abuse ICD Code: F19.10 - Other psychoactive substance abuse, uncomplicated Status: Chronic Assessment and Plan 31-year-old male with a past medical history of MRSA and IV drug use admitted for right knee cellulitis, Since developed into a small abscess. Right knee cellulitis/abscess: Right knee MRI shows broad area of cellulitis anterolaterally of the right knee region; small superficial abscess developing; small nonspecific presumably reactive joint effusion. - Gen. surgery consulted for I&D. As noted in the MRI, I do not suspect joint involvement at this point. Seems more superficial but will monitor closely. - Infectious disease following. Patient is on empiric vancomycin and clindamycin - Schedule ibuprofen for inflammation, Oxycodone prn pain Tobacco and IV drug abuse: chronic -Counseled regarding cessation DVT prophylaxis: Neda Hartmann MD Mar 02, 2017 09:53
[2017-03-02 11:44] VITALS: BP 121/64; PULSE 62; RESP 18; TEMP 97.9; O2SAT 98
[2017-03-02] MEDS ORDERED: PROPOFOL 200 MG/20 ML AMP IV ONE (12:00)
[2017-03-02] MEDS ORDERED: ONDANSETRON HCL 4 MG/2 ML VIAL IV PUSH ONE (12:00)
[2017-03-02 16:18] VITALS: BP 131/75; PULSE 68; RESP 18; TEMP 98.3; O2SAT 96
[2017-03-02] MEDS ORDERED: BUPIVACAINE/EPINEPHRINE 0.25% 50 ML VIAL ONE (17:37)
--- NOTE | 2017-03-02 17:38 | HHI.PR ---
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
[2017-03-02] MEDS ORDERED: HYDROmorphone HCL PF 1 MG/ML VIAL IV PUSH ONE (18:00)
[2017-03-02] MEDS ORDERED: LORazepam 2 MG/ML VIAL IV PUSH ONE (18:00)
[2017-03-02] MEDS ORDERED: DO NOT ADM ANY ANTICOAGULANT DRUGS PRN (18:00)
--- NOTE | 2017-03-02 18:00 | HHI.PR ---
cc: Jez Hanna MD Immediate Post Op Note Procedure Date: Mar 02, 2017 Pre Op Diagnosis: Right leg abscess Post Op Diagnosis: Same Surgeon: Jez Hanna Dulite Machine Bluer(s): Beverly Cobb CFA Procedure: Incision and drainage right leg abscess Complications: None Specimen(s) removed: Gram stain and C&S Estimated blood loss: <10 ml Anesthesia: General Drains: None IVF (300 ml) Patient to: PACU Patient Condition: Good Date/Time of Procedure: SEE SURGICAL CARE RECORD Jez Hanna MD Mar 02, 2017 18:00
[2017-03-02] MEDS ORDERED: *HYDROmorphone PF 1 MG VIAL PERIprocedural Use ONLY ONE (18:06)
[2017-03-03] MEDS ORDERED: PHARMACY ORDERED LAB ONE (00:45)
[2017-03-03 01:09] VITALS: BP 121/68; PULSE 68; RESP 20; TEMP 97.4; O2SAT 99
[2017-03-03] MEDS ORDERED: HYDROmorphone HCL PF 1 MG/ML VIAL IV PUSH ONE (01:15)
[2017-03-03] MEDS: VANCOMYCIN 1,000 MG/NS 250 ML IV SCH ×2 (01:25)
[2017-03-03] MEDS: CLINDAMYCIN INJ 900 MG in SODIUM CHLORIDE 0.9% INJ 100 ML IV SCH ×4 (02:00→21:47)
[2017-03-03] MEDS: IBUPROFEN 400 MG TAB PO SCH ×4 (03:00→21:48)
[2017-03-03 05:51] VITALS: BP 115/67; PULSE 69; RESP 20; TEMP 97.8; O2SAT 97
--- NOTE | 2017-03-03 06:10 | MB ---
cc: GUERO ISLAS M.D. DATE OF CONSULTATION 03/02/2017 REASON FOR CONSULTATION Right leg abscess. HISTORY OF PRESENT ILLNESS The patient is a 31-year-old male who presented to the hospital for evaluation of right leg painful lesion in the area of the right knee. He reports that he had MRSA on the right hand a couple of months prior. The patient was admitted on 02/26/2017. CT scan showed some swelling in the anterolateral side of the right leg but no drainable abscess at the time. The patient underwent MRI of the knee on 02/27 and this demonstrated a small 1-cm area of abscess lateral to the knee but not in the joint space. The patient continues have normal white count but significant pain. I was consulted to consider incision and drainage of this site. PAST MEDICAL HISTORY Significant for - Asthma. MRSA of the right hand. The patient denies any problems with diabetes, hypertension, liver problems, kidney problems, PE, thyroid problems, seizures or cancers. The patient smokes one-pack per day. ALLERGIES Ketorolac. Acetaminophen. Tramadol. PAST SURGERIES Kyphosis repair at age 18. SOCIAL HISTORY The patient smokes one-pack per day. He denies any alcohol use. Illicit drugs - he uses heroin. He denies cocaine or amphetamines. PHYSICAL EXAMINATION GENERAL: Physical exam reveals a male who is uncomfortable. VITALS: BP 115/75, pulse 66, respirations 18, temperature 97.8, 98% saturation on room air. HEENT: Sclerae anicteric. CHEST: Clear to auscultation. CARDIAC EXAM: Regular rate and rhythm without murmurs that are appreciated. ABDOMEN: Soft and nontender. EXTREMITIES: Pulses are present. There is a 2 cm raised area lateral to the right knee that is very tender to palpation. There is a minimal amount of fluctuance that I can appreciate. Distal pulses are intact. NEUROLOGIC EXAM: Nonfocal. The patient is asking when he can eat. LABORATORY VALUES WBCs of 6.9 two days ago. Chemistries demonstrate normal BUN and creatinine of 7 and 0.75, potassium is 3.9 48 hours ago. Liver function tests are elevated with AST of 129, ALT of 148, alkaline phosphatase is normal at 63 and total bilirubin is normal at 0.3. ASSESSMENT Right leg abscess with persistent pain and demonstrated 1 cm fluid collection. PLAN The patient will not tolerate bedside drainage. I will take him to the operating room today to have him undergo incision and drainage with culture under anesthesia. I have discussed the risks of the procedure with the patient including but not limited to bleeding and recurrent infection. I have discussed need for packing and/or possible VAC drainage. I have discussed remedies, consequences, alternatives and convalescence. He vocalizes understanding and agrees to proceed. MD BALTAZAR Hill/YONI /6:03 PM /5:57 AM
[2017-03-03 08:37] VITALS: BP 115/68; PULSE 65; RESP 20; TEMP 98.3; O2SAT 97
[2017-03-03] MEDS: SODIUM CHLORIDE 0.9% FLUSH 10 ML FLUSH IV FLUSH SCH ×2 (08:59→21:47)
--- NOTE | 2017-03-03 10:17 | HHI.PR ---
Subjective Remarks Patient reports is feeling okay. He has been ambulating. States the pain comes and goes. Inquired about how long he will need to be in the hospital. Objective Vitals Vital Signs Date Time Temp Pulse Resp B/P (MAP) Pulse Ox O2 Delivery O2 Flow Rate FiO2 03/03/17 08:37 98.3 65 20 115/68 (84) 97 03/03/17 05:51 97.8 69 20 115/67 (83) 97 03/03/17 05:48 18 03/03/17 01:56 18 03/03/17 01:09 97.4 68 20 121/68 (85) 99 03/02/17 21:30 97.9 77 14 114/58 (76) 97 Room Air 03/02/17 21:00 74 14 112/60 (77) 97 Room Air 03/02/17 20:00 97.8 71 16 115/58 (77) 97 Room Air 03/02/17 19:15 65 16 111/60 (77) 96 Room Air 03/02/17 19:00 65 16 113/60 (77) 96 Room Air 03/02/17 18:45 64 15 111/56 (74) 96 Room Air 03/02/17 18:36 15 03/02/17 18:30 62 15 106/56 (73) 95 Room Air 03/02/17 18:15 65 15 110/61 (77) 95 Room Air 03/02/17 18:00 98.2 63 16 111/60 (77) 100 Nasal Cannula 3 03/02/17 16:18 98.3 68 18 131/75 (93) 96 03/02/17 11:44 97.9 62 18 121/64 (83) 98 I/O 03/02/17 03/02/17 03/02/17 03/03/17 03/03/17 03/03/17 07:00 15:00 23:00 07:00 15:00 23:00 Intake Total 746 ml 0 ml Output Total 5 ml 760 ml Balance -5 ml -14 ml 0 ml Intake Oral 240 ml IV Total 106 ml 0 ml Other 400 ml Output Urine Total 5 ml 750 ml Estimated Blood Loss 10 ml # Voids 0 1 Result Diagram: 02/28/1711 02/28/17 0611 Objective Remarks GENERAL: This is a well-nourished, well-developed patient, in no apparent distress. SKIN: Right knee anterior laterally, there is a quarter size area status post I/ D. It is packed. Wound appeared clean. CARDIOVASCULAR: Normal rate and regular rhythm without murmurs, gallops, or rubs. RESPIRATORY: Good respiratory efforts. Breath sounds equal and clear to auscultation bilaterally. GASTROINTESTINAL: Abdomen soft, non-tender, non-distended. Normal active bowel sounds MUSCULOSKELETAL: Patient reports pain on the anterior lateral side of the right knee with movement. Otherwise has free range of motion. NEURO: Alert & Oriented x4 to person, place, time, situation. Moves all ext x4 PSYCH: Appropriate mood and affect. A/P Problem List: (1) Cellulitis of right knee ICD Code: L03.115 - Cellulitis of right lower limb Status: Acute (2) IV drug abuse ICD Code: F19.10 - Other psychoactive substance abuse, uncomplicated Status: Chronic Assessment and Plan 31-year-old male with a past medical history of MRSA and IV drug use admitted for right knee cellulitis, Since developed into a small abscess. Right knee cellulitis/abscess: Right knee MRI shows broad area of cellulitis anterolaterally of the right knee region; small superficial abscess developing; small nonspecific presumably reactive joint effusion. - Gen. surgery following. Status post I&D. - Infectious disease following. Patient is on empiric vancomycin and clindamycin. Further antibiotics recommendations per ID. - Schedule ibuprofen for inflammation, Oxycodone prn pain Tobacco and IV drug abuse: chronic -Counseled regarding cessation DVT prophylaxis: Neda Hartmann MD Mar 03, 2017 10:17
[2017-03-03 12:37] VITALS: BP 119/56; PULSE 84; RESP 20; TEMP 98.3; O2SAT 97
[2017-03-03] MEDS: VANCOMYCIN INJ 1,250 MG in SODIUM CHLOR 0.9% 250 ML INJ 250 ML IV SCH (13:45)
[2017-03-03 16:38] VITALS: BP 102/49; PULSE 75; RESP 20; TEMP 98.4; O2SAT 96
[2017-03-03 16:39] LABS: HEMATOCRIT 43.7 % (39.0-51.0); MEAN CELL VOLUME 87.2 FL (80.0-100.0); MEAN CORPUSCULAR HEMOGLOBIN 29.3 PG (27.0-34.0); MEAN CORPUSCULAR HGB CONC 33.6 % (32.0-36.0); PLATELET COUNT 271 TH/MM3 (150-450); RED BLOOD COUNT 5.02 MIL/MM3 (4.50-5.90); RED CELL DISTRIBUTION WIDTH 13.8 % (11.6-17.2); REVIEW FLAG FINAL; WHITE BLOOD COUNT 7.9 TH/MM3 (4.0-11.0)
[2017-03-03] MEDS: ENOXAPARIN SODIUM 40 MG/0.4 ML SYRINGE SQ SCH ×2 (17:00→17:46)
--- NOTE | 2017-03-03 18:45 | HHI.PR ---
Subjective Subjective Notes Less pain today Objective Vitals/I&O Vital Signs Date Time Temp Pulse Resp B/P (MAP) Pulse Ox O2 Delivery O2 Flow Rate FiO2 03/03/17 16:38 98.4 75 20 102/49 (66) 96 03/02/17 21:30 Room Air 03/02/17 18:00 3 Labs Laboratory Tests Test 03/03/17 01:15 03/03/17 09:30 03/03/17 15:55 Vancomycin Level Trough 8.1 Creatinine 0.97 Estimat Glomerular Filtration Rate 92 White Blood Count 7.9 Red Blood Count 5.02 Hemoglobin 14.7 Hematocrit 43.7 Mean Corpuscular Volume 87.2 Mean Corpuscular Hemoglobin 29.3 Mean Corpuscular Hemoglobin Concent 33.6 Red Cell Distribution Width 13.8 Platelet Count 271 Mean Platelet Volume 8.5 Date/Time Source Procedure Growth Status 02/26/17 19:10 Blood Peripheral Aerobic Blood Culture - Final NO GROWTH IN 5 DAYS Complete 02/26/17 19:10 Blood Peripheral Anaerobic Blood Culture - Final NO GROWTH IN 5 DAYS Complete 03/02/17 17:36 Abscess Leg Gram Stain - Final Resulted 03/02/17 17:36 Wound Culture - Preliminary S. Aureus Mrsa Resulted Narrative Exam Packing removed Wound clean A/P Assessment and Plan POD #1 I&D right leg abscess moist dressing applied OK for wet to dry dressings for now Discharge when ok with ID Jez Hanna MD Mar 03, 2017 18:45
[2017-03-03 20:00] VITALS: BP 134/66; PULSE 82; RESP 20; TEMP 98; O2SAT 99
--- NOTE | 2017-03-03 20:01 | MP ---
cc: JEZ HANNA M.D. DATE OF SURGERY: 03/02/2017 PROCEDURE: Incision and drainage right lateral leg abscess. ANESTHESIA: General endotracheal anesthesia SURGEON: Vick Hanna MD. ESTIMATED BLOOD LOSS: Less than 10 mL FLUIDS: 300 mL Crystalloid COMPLICATIONS: None. DRAINS: None. SPECIMEN: Gram stain and C&S of abscess to microbiology. PROCEDURE IN DETAIL: The patient was seen in the holding area and right leg was marked by the undersigned and confirmed by the patient. He was taken to the operating room and placed on the operating room table in supine position. After an adequate level of general endotracheal anesthesia was achieved, the right leg was prepped and draped in the field. Time-out was taken confirming the correct patient, site and procedure to be performed. A transverse incision was made in the skin lines across the skin and carried down through the subcutaneous tissue. Purulent material was encountered and this was cultured. The wound was irrigated and suctioned and bleeding meticulously controlled with electrocautery on the lateral side of the wound. With hemostasis assured and with the wound cleaned out with copious irrigation, the wound was packed with half inch iodoform packing. 4x4s were applied and a 3 inch Primitivo was utilized to secure the dressing. The patient was extubated and taken back to the recovery room in stable condition. Sponge, needle and instrument counts were reported be correct. Jez Hanna MD [facility] /6:07 PM /7:56 PM
[2017-03-04 01:17] VITALS: BP 121/76; PULSE 77; RESP 15; TEMP 97.7; O2SAT 100
[2017-03-04] MEDS: VANCOMYCIN INJ 1,250 MG in SODIUM CHLOR 0.9% 250 ML INJ 250 ML IV SCH ×2 (01:17→13:36)
[2017-03-04] MEDS: CLINDAMYCIN INJ 900 MG in SODIUM CHLORIDE 0.9% INJ 100 ML IV SCH ×3 (02:20→14:44)
[2017-03-04] MEDS: IBUPROFEN 400 MG TAB PO SCH ×2 (02:27→13:35)
[2017-03-04 04:59] VITALS: BP 118/75; PULSE 67; RESP 14; TEMP 98.6; O2SAT 99
[2017-03-04 08:00] VITALS: BP 152/90; PULSE 70; RESP 20; TEMP 97.7; O2SAT 100
[2017-03-04] MEDS: SODIUM CHLORIDE 0.9% FLUSH 10 ML FLUSH IV FLUSH SCH (09:00)
[2017-03-04] MEDS ORDERED: OXYC-392 PO (11:59)
[2017-03-04 12:00] VITALS: BP 131/73; PULSE 75; RESP 20; TEMP 98; O2SAT 100
--- NOTE | 2017-03-04 12:57 | HHI.DS ---
Discharge Summary Admission Date Mar 02, 2017 at 17:28 Discharge Date: Mar 04, 2017 Admitting Diagnosis cellulitis right knee, IV drug use (1) Cellulitis of right knee ICD Code: L03.115 - Cellulitis of right lower limb Status: Acute (2) IV drug abuse ICD Code: F19.10 - Other psychoactive substance abuse, uncomplicated Status: Chronic Procedures Incision and drainage of right leg abscess Brief History - From Admission History of present illness from the admitting physician Patient is seen in the CDU. He reports that he presented to the hospital for evaluation of right leg painful lesion in the area of the right knee. He reports a history of MRSA on right hand a "couple of months ago". He is an IVDA. Denies fever, nausea, vomiting, diarrhea, chest pain, or shortness of breath. Reports cold chills. He reports a history of back surgery history and states he has metal rods in back CBC/BMP: 03/03/17 1555 03/04/17 1147 Significant Findings Laboratory Tests Test 03/03/17 01:15 03/03/17 09:30 03/03/17 15:55 03/04/17 11:47 Imaging Last Impressions Knee MRI 02/27/17 0000 Signed Impressions: Service Date/Time: Monday, February 27, 2017 18:32 - CONCLUSION: 1. Broad area of cellulitis anterolaterally of the right knee region. A small superficial abscess is developing within this. 2. Small, nonspecific but presumably reactive joint effusion. No other intra-articular abnormalities are demonstrated. Magdiel Krishna MD Chest X-Ray 02/26/17 1831 Signed Impressions: Service Date/Time: February 18:59 - CONCLUSION: Subtle airspace opacity at the left lung base representing either atelectasis or mild air space consolidation. Magdiel Bajwa MD Lower Extremity CT 02/26/17 0000 Signed Impressions: Service Date/Time: February 20:32 - CONCLUSION: There is subcutaneous edema and skin thickening involving the anterolateral and anterior aspect of the right knee. The appearance is characteristic of a cellulitis. No abscess is identified. The lack of a joint effusion suggests against any involvement of the joint space. Magdiel Bajwa MD Knee X-Ray 02/26/17 0000 Signed Impressions: Service Date/Time: February 18:34 - CONCLUSION: No right knee abnormality is identified. Magdiel Bajwa MD PE at Discharge GENERAL: This is a well-nourished, well-developed patient, in no apparent distress. SKIN: Right knee anterior laterally, there is a quarter size area status post I/ D. It is packed. Wound appeared clean. CARDIOVASCULAR: Normal rate and regular rhythm without murmurs, gallops, or rubs. RESPIRATORY: Good respiratory efforts. Breath sounds equal and clear to auscultation bilaterally. GASTROINTESTINAL: Abdomen soft, non-tender, non-distended. Normal active bowel sounds MUSCULOSKELETAL: Patient reports pain on the anterior lateral side of the right knee with movement. Otherwise has free range of motion. NEURO: Alert & Oriented x4 to person, place, time, situation. Moves all ext x4 PSYCH: Appropriate mood and affect. Pt update on day of discharge Patient reports is feeling better. He is ambulating better. But still reports some discomfort and is asking for limited supply of pain medication so he can go back to work. 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 I discussed the need to keep the wound clean extensively with the patient. Hospital Course 31-year-old male with a past medical history of MRSA and IV drug use admitted for right knee cellulitis, Since developed into a small abscess the patient underwent incision and drainage of the abscess by general surgery. He was followed by infectious disease and treated with vancomycin and clindamycin empirically. Wound culture grew MRSA. His symptoms improved. He is discharged on oral antibiotics per infectious disease recommendations. Tobacco and IV drug abuse: The patient was extensively counseled on the detrimental effects of illicit drugs on his health. He voiced understanding. He was also counseled regarding tobacco cessation. Pt Condition on Discharge: Good Discharge Disposition: Discharge Home Discharge Time: <= 30 minutes Discharge Instructions New Medications: Sulfamethoxazole-Trimethoprim (Bactrim DS) 800-160 Mg Tab 2 TAB PO BID for Infection for 7 Days, TAB 0 Refills Oxycodone (Oxycodone) 5 Mg Tab 5 MG PO Q4HR PRN for PAIN GREATER THAN 5, #10 TAB Rimpel,Ricardy MD Mar 04, 2017 12:57
--- NOTE | 2017-03-04 16:03 | HHI.IDPN ---
Subjective Subjective Remarks sp I+D by Dr Hanna Superficial abscess, no involvement of joint or bone growing MRSA S po bactrim, doxy R clindamycin afebrile Antibiotics vancomycin clindamycin Allergies: Coded Allergies: acetaminophen (Unverified Allergy, Severe, Hives, 02/26/17) ketorolac (Unverified Allergy, Severe, HIVES, 02/26/17) *MDRO Multi-Drug Resistant Organism (Verified Adverse Reaction, Unknown, MRSA, 02/26/17) MRSA (foot) - 12/27/16 Objective . Vital Signs Date Time Temp Pulse Resp B/P (MAP) Pulse Ox O2 Delivery O2 Flow Rate FiO2 03/04/17 12:00 98.0 75 20 131/73 (92) 100 03/04/17 08:00 97.7 70 20 152/90 (110) 100 03/04/17 04:59 98.6 67 14 118/75 (89) 99 03/04/17 01:17 97.7 77 15 121/76 (91) 100 03/03/17 20:00 98.0 82 20 134/66 (88) 99 03/03/17 16:38 98.4 75 20 102/49 (66) 96 . Laboratory Tests Test 03/03/17 15:55 White Blood Count 7.9 TH/MM3 Red Blood Count 5.02 MIL/MM3 Hemoglobin 14.7 GM/DL Hematocrit 43.7 % Mean Corpuscular Volume 87.2 FL Mean Corpuscular Hemoglobin 29.3 PG Mean Corpuscular Hemoglobin Concent 33.6 % Red Cell Distribution Width 13.8 % Platelet Count 271 TH/MM3 Mean Platelet Volume 8.5 FL Laboratory Tests Test 03/03/17 09:30 03/04/17 11:47 Creatinine 0.97 MG/DL 0.96 MG/DL Estimat Glomerular Filtration Rate 92 ML/MIN 93 ML/MIN Microbiology Date/Time Source Procedure Growth Status 03/02/17 17:36 Abscess Leg Gram Stain - Final Complete 03/02/17 17:36 Wound Culture - Final S. Aureus Mrsa Complete Imaging Last Impressions Knee MRI 02/27/17 0000 Signed Impressions: Service Date/Time: Monday, February 27, 2017 18:32 - CONCLUSION: 1. Broad area of cellulitis anterolaterally of the right knee region. A small superficial abscess is developing within this. 2. Small, nonspecific but presumably reactive joint effusion. No other intra-articular abnormalities are demonstrated. Magdiel Krishna MD Chest X-Ray 02/26/17 1831 Signed Impressions: Service Date/Time: February 18:59 - CONCLUSION: Subtle airspace opacity at the left lung base representing either atelectasis or mild air space consolidation. Magdiel Bajwa MD Lower Extremity CT 02/26/17 0000 Signed Impressions: Service Date/Time: February 20:32 - CONCLUSION: There is subcutaneous edema and skin thickening involving the anterolateral and anterior aspect of the right knee. The appearance is characteristic of a cellulitis. No abscess is identified. The lack of a joint effusion suggests against any involvement of the joint space. Magdiel Bajwa MD Knee X-Ray 02/26/17 0000 Signed Impressions: Service Date/Time: February 18:34 - CONCLUSION: No right knee abnormality is identified. Magdiel Bajwa MD Physical Exam CONSTITUTIONAL/GENERAL: This is an adequately nourished patient, in no apparent distress. TUBES/LINES/DRAINS: SKIN: No jaundice, rashes, or lesions. Skin temperature appropriate. Not diaphoretic. RESPIRATORY/CHEST: unlabored respirations. MUSCULOSKELETAL: Extremities without clubbing, cyanosis, or edema. No joint tenderness or effusion noted. No calf tenderness. STTUS LOCALIS: R knee area w/o edema and erythema R lateral knee wound with clean bed mild serosang d/c improved ROM No ascending cellulitis or lymphangitits NEUROLOGICAL: Awake and alert. Motor and sensory grossly within normal limits. Follows commands. Cognitively sharp. Moves all extremities. PSYCHIATRIC: No obvious anxiety/depression. no apparent hallucinations or other psychotic thought process. Assessment & Plan Remarks A: infection of R knee, MRSA superficial infection, no e/o joint or bone involvement sp I+D by Dr Hanna POD #2, improving ESR wnl Rec: OK to dc pt home on po BActrim DS 2 bid x 7 days ( Trimethoprim 4-6 mg/kg/dose, sulfamethoxazole 20-30 mg/kg/dose PO every 12 h per current IDSA recommendations) Jacques Locke,Pauline Maldonado MD Mar 04, 2017 16:03
[2017-03-04] MEDS ORDERED: BACT800T5 PO (16:11)
--- NOTE | 2017-03-04 17:29 | HHI.PR ---
Subjective Subjective Notes Less painful Objective Vitals/I&O Vital Signs Date Time Temp Pulse Resp B/P (MAP) Pulse Ox O2 Delivery O2 Flow Rate FiO2 03/04/17 12:00 98.0 75 20 131/73 (92) 100 03/02/17 21:30 Room Air 03/02/17 18:00 3 Labs Laboratory Tests Test 03/04/17 11:47 Creatinine 0.96 Estimat Glomerular Filtration Rate 93 Date/Time Source Procedure Growth Status 02/26/17 19:10 Blood Peripheral Aerobic Blood Culture - Final NO GROWTH IN 5 DAYS Complete 02/26/17 19:10 Blood Peripheral Anaerobic Blood Culture - Final NO GROWTH IN 5 DAYS Complete 03/02/17 17:36 Abscess Leg Gram Stain - Final Complete 03/02/17 17:36 Wound Culture - Final S. Aureus Mrsa Complete Narrative Exam Packing removed Wound clean A/P Assessment and Plan POD #2 I&D right leg abscess moist dressing applied OK for wet to dry dressings for now Discharge when ok with ID; spoke with Jez Castillo MD Mar 04, 2017 17:29
[2017-03-04] MEDS ORDERED: SULFAMETHOXAZOLE-TRIMETHOPRIM DS 800-160 MG TAB PO SCH (21:00)
[2017-03-05] MEDS ORDERED: PHARMACY ORDERED LAB ONE (00:45)
== END 2017-03-04 18:14 | disposition home or self-care (01) | DRG 603 ==
LOC: NEPC 17:07 → NEDA 21:39 → NEPFCDU 23:17 → N07B 03-02 16:45 → OBSVTOIN 03-02 17:28 → N05B 03-02 19:54
PROVIDERS: ADMIT Family Medicine; ATTEND Family Medicine
PROC: 0J9N0ZX Drainage of Right Lower Leg Subcutaneous Tissue and Fascia, Open Approach, Diagnostic (ICD-10-PCS; principal; 2017-03-02 17:12)
DX: L02.415 Cutaneous abscess of right lower limb (principal); F11.20 Opioid dependence, uncomplicated; L03.115 Cellulitis of right lower limb; Z86.14 Personal history of Methicillin resistant Staphylococcus aureus infection; F17.210 Nicotine dependence, cigarettes, uncomplicated; J45.909 Unspecified asthma, uncomplicated
CPT/HCPCS: 71010; 73564; 73701; 73723; 80048; 80053; 80202; 82550; 82565; 83605; 85025; 85027; 85610; 85652; 86403; 87040; 87070; 87147; 87186; 87205; 96361; 96365; 96366; 96372; 96375; 96376; A9579; G0378; J1170; J1650; J2060; J2270; J2405; J3010; J3370; J7030; J7050; Q9967